=== PATIENT | male | born 1985 | race Caucasian/White ===

== ENCOUNTER → 2020-07-01 10:19 | Outpatient (BNVA) | payer OTHER, SELFPAY | PROVIDERS: PCP Internal Medicine; Visit Provider Internal Medicine | DX: Z76.89 Persons encountering health services in other specified circumstances (principal) ==

== ENCOUNTER → 2020-11-04 15:16 | Outpatient (BNVA) | payer OTHER, SELFPAY | PROVIDERS: PCP Internal Medicine; Visit Provider Internal Medicine ==

== ENCOUNTER → 2021-05-11 14:33 | Outpatient (BNVA) | payer OTHER, SELFPAY | PROVIDERS: PCP Internal Medicine; Visit Provider Internal Medicine ==

== ENCOUNTER 2022-04-02 10:47 | Outpatient (REF) | payer OTHER, SELFPAY ==
[2022-04-02 10:53] LABS: MANUAL DIFF FLAG NO
[2022-04-02 11:21] LABS: Basophils Absolute Auto 0.1 X10*3/uL (0.0-0.2); Eosinophils Absolute Auto 0.2 X10*3/uL (0.0-0.4); Eosinophils Percent Auto 1.5 % (0-4); Hematocrit 40.8 % (42.0-52.0); Hemoglobin 14.2 g/dl (14.0-18.0); Imm Gran Abs Auto 0.04 X10*3/uL (0.00-0.03); Imm Gran Pct Auto 0.4 % (0.0-0.4); Lymphocytes Absolute Auto 2.4 X10*3/uL (1.2-4.9); Lymphocytes Percent Auto 21.4 % (20-40); Mean Corpuscular HGB Conc 34.8 g/dl (31.0-36.0); Mean Corpuscular Hemoglobin 27.7 pg (27.0-33.0); Mean Corpuscular Volume 79.5 fL (80.0-98.0); Mean Platelet Volume 10.1 fL (9.4-12.4); Monocytes Absolute Auto 0.6 X10*3/uL (0.1-1.2); Monocytes Percent Auto 5.1 % (2-11); Neutrophils Absolute Auto 7.8 x10*3/uL (2.0-8.3); Neutrophils Percent Auto 70.6 % (45-73); Platelet Count 259 X10*3/uL (160-400); Red Blood Count 5.13 X10*6/uL (4.60-5.80); Red Cell Distribution Width 14.3 % (11.0-16.0)
[2022-04-02 11:34] LABS: Alanine Aminotransferase 55 U/L (0-40); Albumin Level 4.4 g/dL (3.5-5.0); Alkaline Phosphatase 84 U/L (39-117); Anion Gap 13 (12-20); Aspartate Amino Transferase 31 U/L (5-37); Bilirubin Total 0.7 mg/dL (0.0-1.0); Blood Urea Nitrogen 11 mg/dL (9-16); Calcium 9.3 mg/dL (8.4-10.2); Carbon Dioxide 30 mmol/L (22-29); Chloride 103 mmol/L (96-108); Cholesterol 182 mg/dL; Estimated Glomerular Filt Rate > 60; Glucose Fasting 141 mg/dL (60-99); HDL Cholesterol 30 mg/dL; LDL Cholesterol Calculated 87 mg/dl; Potassium 3.8 mmol/L (3.3-5.1); Sodium 142 mmol/L (135-145); Total Protein 6.8 g/dL (6.5-8.0); Triglycerides 329 mg/dL
[2022-04-02 11:56] LABS: Thyroid Stimulating Hormone 2.37 uIU/mL (0.32-4.0); Vitamin D 25-OH Total 26.7 ng/mL (>30)
== END 2022-04-02 10:48 | disposition home or self-care (01) ==
LOC: HO.LAB 10:47
PROVIDERS: PCP Internal Medicine; Visit Provider Internal Medicine
DX: F90.0 Attention-deficit hyperactivity disorder, predominantly inattentive type (principal); E55.9 Vitamin D deficiency, unspecified; E66.01 Morbid (severe) obesity due to excess calories; G47.33 Obstructive sleep apnea (adult) (pediatric)
CPT/HCPCS: 36415; 80053; 80061; 82306; 84443; 85025

== ENCOUNTER 2022-08-06 13:52 | Outpatient (REF) | payer OTHER, SELFPAY ==
[2022-08-06 15:33] LABS: MANUAL DIFF FLAG NO
[2022-08-06 15:35] LABS: Basophils Absolute Auto 0.1 X10*3/uL (0.0-0.2); Basophils Percent Auto 1.2 % (0-2); Eosinophils Absolute Auto 0.1 X10*3/uL (0.0-0.4); Eosinophils Percent Auto 1.1 % (0-4); Hematocrit 41.4 % (42.0-52.0); Hemoglobin 14.3 g/dl (14.0-18.0); Imm Gran Abs Auto 0.04 X10*3/uL (0.00-0.03); Imm Gran Pct Auto 0.4 % (0.0-0.4); Lymphocytes Absolute Auto 2.2 X10*3/uL (1.2-4.9); Lymphocytes Percent Auto 22.5 % (20-40); Mean Corpuscular HGB Conc 34.5 g/dl (31.0-36.0); Mean Corpuscular Hemoglobin 27.7 pg (27.0-33.0); Mean Corpuscular Volume 80.2 fL (80.0-98.0); Mean Platelet Volume 10.2 fL (9.4-12.4); Monocytes Absolute Auto 0.4 X10*3/uL (0.1-1.2); Monocytes Percent Auto 4.4 % (2-11); Neutrophils Absolute Auto 6.9 x10*3/uL (2.0-8.3); Neutrophils Percent Auto 70.4 % (45-73); Platelet Count 266 X10*3/uL (160-400); Red Blood Count 5.16 X10*6/uL (4.60-5.80); Red Cell Distribution Width 13.9 % (11.0-16.0); White Blood Count 9.9 X10*3/uL (4.8-10.8)
[2022-08-06 16:24] LABS: Bilirubin Total 0.6 mg/dL (0.0-1.0)
[2022-08-06 16:28] LABS: Alanine Aminotransferase 37 U/L (0-40); Albumin Level 4.4 g/dL (3.5-5.0); Alkaline Phosphatase 79 U/L (39-117); Anion Gap 15 (12-20); Aspartate Amino Transferase 20 U/L (5-37); Blood Urea Nitrogen 14 mg/dL (9-16); Calcium 9.8 mg/dL (8.4-10.2); Carbon Dioxide 27 mmol/L (22-29); Chloride 104 mmol/L (96-108); Cholesterol 176 mg/dL; Estimated Glomerular Filt Rate > 60; Glucose Fasting 116 mg/dL (60-99); HDL Cholesterol 27 mg/dL; LDL Cholesterol Calculated 105 mg/dl; Potassium 3.6 mmol/L (3.3-5.1); Sodium 142 mmol/L (135-145); Thyroid Stimulating Hormone 1.55 uIU/mL (0.32-4.0); Total Protein 6.6 g/dL (6.5-8.0); Triglycerides 221 mg/dL; Vitamin D 25-OH Total 27.1 ng/mL (>30)
== END 2022-08-06 13:53 | disposition home or self-care (01) ==
LOC: HO.HMGCLDS 13:52
PROVIDERS: PCP Internal Medicine; Visit Provider Internal Medicine
DX: E66.01 Morbid (severe) obesity due to excess calories (principal); F90.0 Attention-deficit hyperactivity disorder, predominantly inattentive type; E55.9 Vitamin D deficiency, unspecified; N52.9 Male erectile dysfunction, unspecified
CPT/HCPCS: 36415; 80053; 80061; 82306; 84443; 85025

== ENCOUNTER 2022-12-19 19:59 | Observation (INO) | payer OTHER, SELFPAY ==
--- NOTE | ~2022-12-19 | XR_ITS ---
EXAMINATION: XR CERVICAL SPINE CLINICAL INFORMATION: Radicular neck pain COMPARISON: None available. TECHNIQUE: 3 views of the cervical spine were obtained. FINDINGS: There are no prevertebral soft tissue or bony abnormalities demonstrated. No compression fractures or subluxations are identified. Alignment is maintained at the atlanto-axial articulation. The disc spaces are preserved. No endplate changes are seen. The prevertebral soft tissues are normal. The lung apices are clear . XR/XR cervical spine 3V IMPRESSION: Normal cervical spine radiographs.
--- NOTE | 2022-12-19 20:50 | ED_ITS ---
HPI - General Adult General Chief complaint: Neck Pain/Injury <TACOS Alvarenga - Last Filed: 12/22/22 18:06> Stated complaint: high blood pressure,neck pain <TACOS Alvarenga - Last Filed: 12/22/22 18:06> Time Seen by Provider: 12/19/22 21:37 <TACOS Alvarenga - Last Filed: 12/22/22 18:06> Source: patient and family <Valerio Rosales MD - Last Filed: 12/19/22 23:55> Mode of arrival: ambulatory <Valerio Rosales MD - Last Filed: 12/19/22 23:55> Limitations: no limitations <Valerio Rosales MD - Last Filed: 12/19/22 23:55> History of Present Illness HPI narrative: right sided neck and shoulder pain, towards the scapula with some tingling, patient believes it is because he woke up on his right side. He thought that it was getting better but then decided to go to the urgent care where they found it to be 186/104. Denies chest pain or shortness of breath. Stella huitron saw his primary care in August and the BP was 165 systolic. no increase in weight gain. no prior EKG. <Valerio Rosales MD - Last Filed: 12/19/22 23:55> Onset (ago): day(s) (5) <Valerio Rosales MD - Last Filed: 12/19/22 23:55> Location: neck and upper extremity <Valerio Rosales MD - Last Filed: 12/19/22 23:55> Severity: mild <Valerio Rosales MD - Last Filed: 12/19/22 23:55> Quality: other (soreness, radicular pain with neck movement) <Valerio Rosales MD - Last Filed: 12/19/22 23:55> Pain Consistency: intermittent <Valerio Rosales MD - Last Filed: 12/19/22 23:55> Relieving factors: none <Valerio Rosales MD - Last Filed: 12/19/22 23:55> Exacerbating factors: movement <Valerio Rosales MD - Last Filed: 12/19/22 23:55> Related Data Home medications: Home Medications Medication Instructions Recorded Confirmed cholecalciferol (vitamin D3) 50 50 mcg PO DAILY 05/28/20 12/20/22 mcg (2,000 unit) capsule dextroamphetamine-amphetamine ER 1 cap PO DAILY 05/28/20 12/20/22 15 mg 24hr capsule,extend release Previous Rx's Medication Instructions Recorded amlodipine 5 mg tablet 5 mg PO DAILY #30 tabs 12/21/22 hydrochlorothiazide 12.5 mg tablet 12.5 mg PO DAILY #30 tabs 12/21/22 lisinopril 10 mg tablet 10 mg PO DAILY #30 tabs 12/21/22 <TACOS Alvarenga - Last Filed: 12/22/22 18:06> Allergies/adverse reactions: Allergies Allergy/AdvReac Type Severity Reaction Status Date / Time No Known Allergies Allergy Verified 05/11/21 14:54 [No Known Allergies*] <TACOS Alvarenga - Last Filed: 12/22/22 18:06> Review of Systems Review of Systems: Yes all other systems are reviewed and are negative <Valerio Rosales MD - Last Filed: 12/19/22 23:55> Musculoskeletal: Musculoskeletal: Reports other (neck and shoulder pain) <Valerio Rosales MD - Last Filed: 12/19/22 23:55> [facility] Past Medical History Medical History: Medical History Obesity FRANKIE (obstructive sleep apnea) FRANKIE (obstructive sleep apnea) <TACOS Alvarenga - Last Filed: 12/22/22 18:06> Social History Social History: Social History Household Members: Significant Other Housing: Apartment Do you presently have visiting nurse or other home services: No Alcohol intake: never Patient Tobacco Use Status: Never used Tobacco service: No Current occupational status: employed <TACOS Alvarenga - Last Filed: 12/22/22 18:06> Physical Exam ED Vital Signs: Vital Signs - 24 hr 12/19/22 20:51 12/19/22 21:28 12/19/22 22:06 Temperature 98.6 F Pulse Rate 95 84 74 Respiratory Rate 20 14 18 Blood Pressure 216/121 H 205/109 H 197/113 H Pulse Oximetry 99 98 98 Oxygen Delivery Method Room Air Room Air Room Air 12/19/22 22:36 Temperature Pulse Rate 76 Respiratory Rate 14 Blood Pressure 186/96 H Pulse Oximetry 98 Oxygen Delivery Method Room Air BMI result Body Mass Index 27.1 <TACOS Alvarenga - Last Filed: 12/22/22 18:06> Vital Signs - 24 hr 12/19/22 20:51 12/19/22 21:28 12/19/22 22:06 Temperature 98.6 F Pulse Rate 95 84 74 Respiratory Rate 20 14 18 Blood Pressure 216/121 H 205/109 H 197/113 H Pulse Oximetry 99 98 98 Oxygen Delivery Method Room Air Room Air Room Air 12/19/22 22:36 Temperature Pulse Rate 76 Respiratory Rate 14 Blood Pressure 186/96 H Pulse Oximetry 98 Oxygen Delivery Method Room Air BMI result Body Mass Index 27.1 <Valerio Rosales MD - Last Filed: 12/19/22 23:55> Const Nutritional Appearance: obese <Valerio Rosales MD - Last Filed: 12/19/22 23:55> Orientation/consciousness: oriented to person and patient oriented x3 <Valerio Rosales MD - Last Filed: 12/19/22 23:55> Limitations: no limitations <Valerio Rosales MD - Last Filed: 12/19/22 23:55> HENMT Head: Yes normal to inspection <Valerio Rosales MD - Last Filed: 12/19/22 23:55> Ears: external ears normal <Valerio Rosales MD - Last Filed: 12/19/22 23:55> General nose exam: Normal external nose present <Valerio Rosales MD - Last Filed: 12/19/22 23:55> Mouth: Normal oral and palatal mucosa present and oropharynx normal <Valerio Rosales MD - Last Filed: 12/19/22 23:55> Throat: Yes posterior oropharynx normal <Valerio Rosales MD - Last Filed: 12/19/22 23:55> Eyes General: appearance normal, both eyes and all related structures <Valerio Rosales MD - Last Filed: 12/19/22 23:55> Neck Other: right sided trapezius pain <Valerio Rosales MD - Last Filed: 12/19/22 23:55> Chest Chest palpation & inspection: normal inspection of the chest <Valerio Rosales MD - Last Filed: 12/19/22 23:55> Resp Auscultation: clear to auscultation bilaterally <Valerio Rosales MD - Last Filed: 12/19/22 23:55> Cardio Jugular venous distension: no JVD <Valerio Rosales MD - Last Filed: 12/19/22 23:55> Rate: regular rate <Valerio Rosales MD - Last Filed: 12/19/22 23:55> Rhythm: regular rhythm <Valerio Rosales MD - Last Filed: 12/19/22 23:55> Heart sounds: S1 normal heart sound present and S2 normal heart sound present <Valerio Rosales MD - Last Filed: 12/19/22 23:55> GI Inspection: Yes normal to inspection <Valerio Rosales MD - Last Filed: 12/19/22 23:55> Palpation (GI): Soft to palpation, nontender and No hepatosplenomegaly present <Valerio Rosales MD - Last Filed: 12/19/22 23:55> Auscultation: normal bowel sounds <Valerio Rosales MD - Last Filed: 12/19/22 23:55> General: Yes no CVA tenderness <Valerio Rosales MD - Last Filed: 12/19/22 23:55> Back/Spine/Pelvis Back: no CVA tenderness <Valerio Rosales MD - Last Filed: 12/19/22 23:55> Skin General skin exam: no rashes or lesions noted <Valerio Rosales MD - Last Filed: 12/19/22 23:55> Neuro General: oriented to person and patient oriented x3 <Valerio Rosales MD - Last Filed: 12/19/22 23:55> Cranial nerves: Yes CN's II-XII intact bilaterally <Valerio Rosales MD - Last Filed: 12/19/22 23:55> Motor exam (neuro): 5/5 motor strength present throughout <Valerio Rosales MD - Last Filed: 12/19/22 23:55> Extrem General: Yes normal to inspection <Valerio Rosales MD - Last Filed: 12/19/22 23:55> Psych Appearance: grossly normal <Valerio Rosales MD - Last Filed: 12/19/22 23:55> Course Course Course Narrative: RME: 37yo m w/PMHx FRANKIE, c/o right side neck pain x5 days w/assoc RUE tingling. Also reports HTN (186/104) at [facility], denies history of elevated BP. Denies CHRISTIAN, dizziness, CP/SOB HTNsive 216/121 in triage EKG, Labs ordered Full HPI, ROS and PE to be performed by primary ED provider. <TACOS Alvarenga - Last Filed: 12/22/22 18:06> Reevaluation(s) Reevaluation #1: patient with BP in the 200s and a very abnormal EKG. GAve ASA, NTP, and labetolol. First troponin negative will admit for hypertensive urgency and abnormal EKG <Valerio Rosales MD - Last Filed: 12/19/22 23:55> Time: 23:50 <Valerio Rosales MD - Last Filed: 12/19/22 23:55> Reevaluation #2: I spent 40 minutes of critical care, with interventions, assessments, speaking to patient, consultants, and family. <Valerio Rosales MD - Last Filed: 12/19/22 23:55> Time: 23:50 <Valerio Rosales MD - Last Filed: 12/19/22 23:55> Medications Administered Discontinued Medications Generic Name Dose Route Start Last Admin Trade Name Freq PRN Reason Stop Dose Admin Acetaminophen 650 mg 12/19/22 23:53 12/20/22 23:12 Acetaminophen 325 Mg Tablet PO 650 mg Q6H PRN Administration Pain, Mild (Pain Scale 1-3) Amlodipine Besylate 5 mg 12/20/22 01:30 12/21/22 08:48 Amlodipine Besylate 5 Mg Tablet PO 5 mg DAILY NAZARIO Administration Protocol Aspirin 162 mg 12/19/22 21:50 12/19/22 22:02 Aspirin Enteric Coated 81 Mg Tablet.Dr PO 12/19/22 21:51 162 mg ONCE ONE Administration Enoxaparin Sodium 40 mg 12/20/22 09:00 12/21/22 08:48 Enoxaparin Sodium 40 Mg/0.4 Ml Syringe SUBCUT 40 mg Q24H [facility] Administration Hydrochlorothiazide 12.5 mg 12/21/22 09:00 12/21/22 08:48 Hydrochlorothiazide 12.5 Mg Tablet PO 12.5 mg DAILY [facility] Administration Protocol Ketorolac Tromethamine 30 mg 12/19/22 21:52 12/19/22 22:02 Ketorolac Tromethamine 30 Mg/Ml Vial IVPUSH 12/19/22 21:53 30 mg ONCE ONE Administration Labetalol HCl 10 mg 12/19/22 21:50 12/19/22 22:02 Labetalol Hcl 100 Mg/20 Ml Vial IVPUSH 12/19/22 21:51 10 mg ONCE ONE Administration Lisinopril 5 mg 12/20/22 01:30 12/20/22 02:05 Lisinopril 5 Mg Tablet PO 5 mg DAILY [facility] Administration Protocol Lisinopril 10 mg 12/20/22 09:00 12/21/22 08:49 Lisinopril 10 Mg Tablet PO 10 mg DAILY [facility] Administration Protocol Nitroglycerin 1 inch 12/19/22 21:50 12/19/22 22:02 Nitroglycerin 2 % Oint 1 Gm Packet TRANSDERMA 12/19/22 21:51 1 inch ONCE ONE Administration Potassium Chloride 20 meq 12/19/22 23:52 12/20/22 00:55 Potassium Chloride Er 20 Meq Tab.Er.Prt PO 12/19/22 23:53 20 meq ONCE ONE Administration Potassium Chloride 40 meq 12/20/22 01:30 12/20/22 02:05 Potassium Chloride Packet 20 Meq Packet PO 12/20/22 01:31 40 meq ONCE ONE Administration Potassium Chloride 40 meq 12/20/22 14:38 12/20/22 15:04 Potassium Chloride Er 20 Meq Tab.Er.Prt PO 12/20/22 14:39 40 meq ONCE ONE Administration Sodium Chloride 3 ml 12/20/22 00:00 12/21/22 08:48 0.9 % Sodium Chloride Flush 3 Ml Syringe IVFLUSH 3 ml QSHIFT [facility] Administration Trolamine Salicylate 1 appl 12/20/22 14:37 12/20/22 15:05 Trolamine Salicylate 10 % Cream 85 Gm Tube TOPICAL 12/20/22 14:38 1 appl ONCE ONE Administration Protocol <TACOS Alvarenga - Last Filed: 12/22/22 18:06> Medications Administered Discontinued Medications Generic Name Dose Route Start Last Admin Trade Name Renu PRN Reason Stop Dose Admin Acetaminophen 650 mg 12/19/22 23:53 12/20/22 23:12 Acetaminophen 325 Mg Tablet PO 650 mg Q6H PRN Administration Pain, Mild (Pain Scale 1-3) Amlodipine Besylate 5 mg 12/20/22 01:30 12/21/22 08:48 Amlodipine Besylate 5 Mg Tablet PO 5 mg DAILY [facility] Administration Protocol Aspirin 162 mg 12/19/22 21:50 12/19/22 22:02 Aspirin Enteric Coated 81 Mg Tablet.Dr PO 12/19/22 21:51 162 mg ONCE ONE Administration Enoxaparin Sodium 40 mg 12/20/22 09:00 12/21/22 08:48 Enoxaparin Sodium 40 Mg/0.4 Ml Syringe SUBCUT 40 mg Q24H [facility] Administration Hydrochlorothiazide 12.5 mg 12/21/22 09:00 12/21/22 08:48 Hydrochlorothiazide 12.5 Mg Tablet PO 12.5 mg DAILY [facility] Administration Protocol Ketorolac Tromethamine 30 mg 12/19/22 21:52 12/19/22 22:02 Ketorolac Tromethamine 30 Mg/Ml Vial IVPUSH 12/19/22 21:53 30 mg ONCE ONE Administration Labetalol HCl 10 mg 12/19/22 21:50 12/19/22 22:02 Labetalol Hcl 100 Mg/20 Ml Vial IVPUSH 12/19/22 21:51 10 mg ONCE ONE Administration Lisinopril 5 mg 12/20/22 01:30 12/20/22 02:05 Lisinopril 5 Mg Tablet PO 5 mg DAILY [facility] Administration Protocol Lisinopril 10 mg 12/20/22 09:00 12/21/22 08:49 Lisinopril 10 Mg Tablet PO 10 mg DAILY [facility] Administration Protocol Nitroglycerin 1 inch 12/19/22 21:50 12/19/22 22:02 Nitroglycerin 2 % Oint 1 Gm Packet TRANSDERMA 12/19/22 21:51 1 inch ONCE ONE Administration Potassium Chloride 20 meq 12/19/22 23:52 12/20/22 00:55 Potassium Chloride Er 20 Meq Tab.Er.Prt PO 12/19/22 23:53 20 meq ONCE ONE Administration Potassium Chloride 40 meq 12/20/22 01:30 12/20/22 02:05 Potassium Chloride Packet 20 Meq Packet PO 12/20/22 01:31 40 meq ONCE ONE Administration Potassium Chloride 40 meq 12/20/22 14:38 12/20/22 15:04 Potassium Chloride Er 20 Meq Tab.Er.Prt PO 12/20/22 14:39 40 meq ONCE ONE Administration Sodium Chloride 3 ml 12/20/22 00:00 12/21/22 08:48 0.9 % Sodium Chloride Flush 3 Ml Syringe IVFLUSH 3 ml QSHIFT [facility]IO Administration Trolamine Salicylate 1 appl 12/20/22 14:37 12/20/22 15:05 Trolamine Salicylate 10 % Cream 85 Gm Tube TOPICAL 12/20/22 14:38 1 appl ONCE ONE Administration Protocol <Valerio Rosales MD - Last Filed: 12/19/22 23:55> Medical Decision Making Differential Diagnosis Differential Diagnoses: The differential diagnosis associated with the presentation includes (hypertensive urgency, cardiac ischemia, abnormal EKG) <Valerio Rosales MD - Last Filed: 12/19/22 23:55> Admission/Observation Consideration of admission/observation: Escalation of care including admission/observation considered (This patien t with abnormal EKG and BP 220 systolic admission was considered immediately) <Valerio Rosales MD - Last Filed: 12/19/22 23:55> Consult Healthcare Provider Management of the patient was discussed with: Hospitalist <Valerio Rosales MD - Last Filed: 12/19/22 23:55> Lab Data MDM Lab Attestation statement: I reviewed the patient's lab results. <Valerio Rosales MD - Last Filed: 12/19/22 23:55> Result Diagrams: 12/19/22 21:25 12/19/22 21:25 <TACOS Alvarenga - Last Filed: 12/22/22 18:06> Labs: Lab Results 12/19/22 12/19/22 12/19/22 Range/Units 02:30 21:25 21:25 WBC 11.6 H (4.8-10.8) X10*3/uL RBC 5.22 (4.60-5.80) X10*6/uL Hgb 14.4 (14.0-18.0) g/dl Hct 40.9 L (42.0-52.0) % MCV 78.4 L (80.0-98.0) fL MCH 27.6 (27.0-33.0) pg MCHC 35.2 (31.0-36.0) g/dl RDW 13.9 (11.0-16.0) % Plt Count 273 (160-400) X10*3/uL MPV 9.6 (9.4-12.4) fL Immature Gran % (Auto) 0.4 (0.0-0.4) % Neut % (Auto) 68.5 (45-73) % Lymph % (Auto) 23.1 (20-40) % [place] % (Auto) 5.4 (2-11) % Eos % (Auto) 1.7 (0-4) % Baso % (Auto) 0.9 (0-2) % Lymph # (Auto) 2.7 (1.2-4.9) X10*3/uL [place] # (Auto) 0.6 (0.1-1.2) X10*3/uL Eos # (Auto) 0.2 (0.0-0.4) X10*3/uL Baso # (Auto) 0.1 (0.0-0.2) X10*3/uL Abs Immat Gran (auto) 0.05 H (0.00-0.03) X10*3/uL Absolute Neuts (auto) 7.9 (2.0-8.3) x10*3/uL Absolute Nucleated RBC 0.000 (0.0-0.012) X10*3/uL Nucleated RBC % (auto) 0.0 (0.0-0.2) /100WBC PT (10.0-13.1) SEC INR (0.9-1.1) Sodium 144 (135-145) mmol/L Potassium 3.2 L (3.3-5.1) mmol/L Chloride 105 (96-108) mmol/L Carbon Dioxide 29 (22-29) mmol/L Anion Gap 13 (12-20) BUN 12 (9-16) mg/dL Creatinine 0.90 (0.5-1.4) mg/dL Estim Creat Clear Calc 122.1 Estimated GFR > 60 Random Glucose 128 H (60-115) mg/dL Calcium 10.0 (8.4-10.2) mg/dL Total Bilirubin 0.5 (0.0-1.0) mg/dL Direct Bilirubin 0.1 (0.0-0.5) mg/dL AST 23 (5-37) U/L ALT 48 H (0-40) U/L Alkaline Phosphatase 86 (39-117) U/L Troponin I High Sens (<3.5-35.0) ng/L Total Protein 6.8 (6.5-8.0) g/dL Albumin 4.5 (3.5-5.0) g/dL Urine Color Yellow Urine Appearance Clear Urine pH 5.5 (5.0-9.0) Ur Specific [place] 1.015 (1.005-1.025) Urine Protein Negative (Neg-Trace) mg/dL Urine Glucose (UA) Negative (Negative) mg/dL Urine Ketones Negative (Negative) mg/dL Urine Blood Negative (Negative) Urine Nitrite Negative (Negative) Ur Leukocyte Esterase Negative (Negative) Urine RBC 0-2 (0-2) /HPF Urine WBC 0-5 (0-5) /HPF Ur Squamous Epith Cells 0-2 (0-2) /HPF Urine Bacteria None Seen (None Seen) Hyaline Casts 0-2 (0-2) /LPF 12/19/22 12/19/22 Range/Units 21:25 21:25 WBC (4.8-10.8) X10*3/uL RBC (4.60-5.80) X10*6/uL Hgb (14.0-18.0) g/dl Hct (42.0-52.0) % MCV (80.0-98.0) fL MCH (27.0-33.0) pg MCHC (31.0-36.0) g/dl RDW (11.0-16.0) % Plt Count (160-400) X10*3/uL MPV (9.4-12.4) fL Immature Gran % (Auto) (0.0-0.4) % Neut % (Auto) (45-73) % Lymph % (Auto) (20-40) % [place] % (Auto) (2-11) % Eos % (Auto) (0-4) % Baso % (Auto) (0-2) % Lymph # (Auto) (1.2-4.9) X10*3/uL [place] # (Auto) (0.1-1.2) X10*3/uL Eos # (Auto) (0.0-0.4) X10*3/uL Baso # (Auto) (0.0-0.2) X10*3/uL Abs Immat Gran (auto) (0.00-0.03) X10*3/uL Absolute Neuts (auto) (2.0-8.3) x10*3/uL Absolute Nucleated RBC (0.0-0.012) X10*3/uL Nucleated RBC % (auto) (0.0-0.2) /100WBC PT 11.1 (10.0-13.1) SEC INR 1.0 (0.9-1.1) Sodium (135-145) mmol/L Potassium (3.3-5.1) mmol/L Chloride (96-108) mmol/L Carbon Dioxide (22-29) mmol/L Anion Gap (12-20) BUN (9-16) mg/dL Creatinine (0.5-1.4) mg/dL Estim Creat Clear Calc Estimated GFR Random Glucose (60-115) mg/dL Calcium (8.4-10.2) mg/dL Total Bilirubin (0.0-1.0) mg/dL Direct Bilirubin (0.0-0.5) mg/dL AST (5-37) U/L ALT (0-40) U/L Alkaline Phosphatase (39-117) U/L Troponin I High Sens 5.4 (<3.5-35.0) ng/L Total Protein (6.5-8.0) g/dL Albumin (3.5-5.0) g/dL Urine Color Urine Appearance Urine pH (5.0-9.0) Ur Specific Pierce (1.005-1.025) Urine Protein (Neg-Trace) mg/dL Urine Glucose (UA) (Negative) mg/dL Urine Ketones (Negative) mg/dL Urine Blood (Negative) Urine Nitrite (Negative) Ur Leukocyte Esterase (Negative) Urine RBC (0-2) /HPF Urine WBC (0-5) /HPF Ur Squamous Epith Cells (0-2) /HPF Urine Bacteria (None Seen) Hyaline Casts (0-2) /LPF <TACOS Alvarenga - Last Filed: 12/22/22 18:06> Lab Results 12/19/22 12/19/22 12/19/22 Range/Units 02:30 21:25 21:25 WBC 11.6 H (4.8-10.8) X10*3/uL RBC 5.22 (4.60-5.80) X10*6/uL Hgb 14.4 (14.0-18.0) g/dl Hct 40.9 L (42.0-52.0) % MCV 78.4 L (80.0-98.0) fL MCH 27.6 (27.0-33.0) pg MCHC 35.2 (31.0-36.0) g/dl RDW 13.9 (11.0-16.0) % Plt Count 273 (160-400) X10*3/uL MPV 9.6 (9.4-12.4) fL Immature Gran % (Auto) 0.4 (0.0-0.4) % Neut % (Auto) 68.5 (45-73) % Lymph % (Auto) 23.1 (20-40) % [place] % (Auto) 5.4 (2-11) % Eos % (Auto) 1.7 (0-4) % Baso % (Auto) 0.9 (0-2) % Lymph # (Auto) 2.7 (1.2-4.9) X10*3/uL [place] # (Auto) 0.6 (0.1-1.2) X10*3/uL Eos # (Auto) 0.2 (0.0-0.4) X10*3/uL Baso # (Auto) 0.1 (0.0-0.2) X10*3/uL Abs Immat Gran (auto) 0.05 H (0.00-0.03) X10*3/uL Absolute Neuts (auto) 7.9 (2.0-8.3) x10*3/uL Absolute Nucleated RBC 0.000 (0.0-0.012) X10*3/uL Nucleated RBC % (auto) 0.0 (0.0-0.2) /100WBC PT (10.0-13.1) SEC INR (0.9-1.1) Sodium 144 (135-145) mmol/L Potassium 3.2 L (3.3-5.1) mmol/L Chloride 105 (96-108) mmol/L Carbon Dioxide 29 (22-29) mmol/L Anion Gap 13 (12-20) BUN 12 (9-16) mg/dL Creatinine 0.90 (0.5-1.4) mg/dL Estim Creat Clear Calc 122.1 Estimated GFR > 60 Random Glucose 128 H (60-115) mg/dL Calcium 10.0 (8.4-10.2) mg/dL Total Bilirubin 0.5 (0.0-1.0) mg/dL Direct Bilirubin 0.1 (0.0-0.5) mg/dL AST 23 (5-37) U/L ALT 48 H (0-40) U/L Alkaline Phosphatase 86 (39-117) U/L Troponin I High Sens (<3.5-35.0) ng/L Total Protein 6.8 (6.5-8.0) g/dL Albumin 4.5 (3.5-5.0) g/dL Urine Color Yellow Urine Appearance Clear Urine pH 5.5 (5.0-9.0) Ur Specific [place] 1.015 (1.005-1.025) Urine Protein Negative (Neg-Trace) mg/dL Urine Glucose (UA) Negative (Negative) mg/dL Urine Ketones Negative (Negative) mg/dL Urine Blood Negative (Negative) Urine Nitrite Negative (Negative) Ur Leukocyte Esterase Negative (Negative) Urine RBC 0-2 (0-2) /HPF Urine WBC 0-5 (0-5) /HPF Ur Squamous Epith Cells 0-2 (0-2) /HPF Urine Bacteria None Seen (None Seen) Hyaline Casts 0-2 (0-2) /LPF 12/19/22 12/19/22 Range/Units 21:25 21:25 WBC (4.8-10.8) X10*3/uL RBC (4.60-5.80) X10*6/uL Hgb (14.0-18.0) g/dl Hct (42.0-52.0) % MCV (80.0-98.0) fL MCH (27.0-33.0) pg MCHC (31.0-36.0) g/dl RDW (11.0-16.0) % Plt Count (160-400) X10*3/uL MPV (9.4-12.4) fL Immature Gran % (Auto) (0.0-0.4) % Neut % (Auto) (45-73) % Lymph % (Auto) (20-40) % [place] % (Auto) (2-11) % Eos % (Auto) (0-4) % Baso % (Auto) (0-2) % Lymph # (Auto) (1.2-4.9) X10*3/uL [place] # (Auto) (0.1-1.2) X10*3/uL Eos # (Auto) (0.0-0.4) X10*3/uL Baso # (Auto) (0.0-0.2) X10*3/uL Abs Immat Gran (auto) (0.00-0.03) X10*3/uL Absolute Neuts (auto) (2.0-8.3) x10*3/uL Absolute Nucleated RBC (0.0-0.012) X10*3/uL Nucleated RBC % (auto) (0.0-0.2) /100WBC PT 11.1 (10.0-13.1) SEC INR 1.0 (0.9-1.1) Sodium (135-145) mmol/L Potassium (3.3-5.1) mmol/L Chloride (96-108) mmol/L Carbon Dioxide (22-29) mmol/L Anion Gap (12-20) BUN (9-16) mg/dL Creatinine (0.5-1.4) mg/dL Estim Creat Clear Calc Estimated GFR Random Glucose (60-115) mg/dL Calcium (8.4-10.2) mg/dL Total Bilirubin (0.0-1.0) mg/dL Direct Bilirubin (0.0-0.5) mg/dL AST (5-37) U/L ALT (0-40) U/L Alkaline Phosphatase (39-117) U/L Troponin I High Sens 5.4 (<3.5-35.0) ng/L Total Protein (6.5-8.0) g/dL Albumin (3.5-5.0) g/dL Urine Color Urine Appearance Urine pH (5.0-9.0) Ur Specific [place] (1.005-1.025) Urine Protein (Neg-Trace) mg/dL Urine Glucose (UA) (Negative) mg/dL Urine Ketones (Negative) mg/dL Urine Blood (Negative) Urine Nitrite (Negative) Ur Leukocyte Esterase (Negative) Urine RBC (0-2) /HPF Urine WBC (0-5) /HPF Ur Squamous Epith Cells (0-2) /HPF Urine Bacteria (None Seen) Hyaline Casts (0-2) /LPF <Valerio Rosales MD - Last Filed: 12/19/22 23:55> Independent Interpretation I performed an independent interpretation of an: EKG (sinus 76, flipped ts and st depression I, AVL. Flipped Ts V5-V6) and Plain X-Ray (cervical spine: no djd) <Valerio Rosales MD - Last Filed: 12/19/22 23:55> Independent Historian Clinical information obtained from an independent historian. History obtained from or confirmed by: Spouse <Valerio Rosales MD - Last Filed: 12/19/22 23:55> Chronic Conditions Patient?s care impacted by: Other (obesity) <Valerio Rosales MD - Last Filed: 12/19/22 23:55> Discharge Plan Discharge Clinical Impression: Hypertensive urgency, Abnormal EKG <TACOS Alvarenga - Last Filed: 12/22/22 18:06> Patient Disposition: Admitted As Inpatient <TACOS Alvarenga - Last Filed: 12/22/22 18:06> Interventions: Admission Worksheet (ED) Last Done: 12/20/22 02:10 <TACOS Alvarenga - Last Filed: 12/22/22 18:06> Discharge Date/Time: 12/20/22 02:10 <TACOS Alvarenga - Last Filed: 12/22/22 18:06>
[2022-12-19 20:51] VITALS: BP 216/121; PULSE 95; RESP 20; TEMP 37; O2SAT 99; BMI 27.1
--- NOTE | 2022-12-19 20:52 | ECG_ITS ---
Test Reason : HBP Blood Pressure : / mmHG Vent. Rate : 076 BPM Atrial Rate : 076 BPM P-R Int : 166 ms QRS Dur : 110 ms QT Int : 420 ms P-R-T Axes : 043 -17 156 degrees QTc Int : 472 ms Normal sinus rhythm Incomplete right bundle branch block Inferior infarct , age undetermined Cannot rule out Anterior infarct , age undetermined ST & T wave abnormality, consider lateral ischemia Abnormal ECG No previous ECGs available Referred By: Flora Duckworth Electronically Signed By:Neo Mena
[2022-12-19 21:28] VITALS: BP 205/109; PULSE 84; RESP 14; O2SAT 98
[2022-12-19 21:30] LABS: MANUAL DIFF FLAG NO
[2022-12-19 21:31] LABS: Basophils Absolute Auto 0.1 X10*3/uL (0.0-0.2); Basophils Percent Auto 0.9 % (0-2); Eosinophils Absolute Auto 0.2 X10*3/uL (0.0-0.4); Eosinophils Percent Auto 1.7 % (0-4); Hematocrit 40.9 % (42.0-52.0); Hemoglobin 14.4 g/dl (14.0-18.0); Imm Gran Abs Auto 0.05 X10*3/uL (0.00-0.03); Imm Gran Pct Auto 0.4 % (0.0-0.4); Lymphocytes Absolute Auto 2.7 X10*3/uL (1.2-4.9); Lymphocytes Percent Auto 23.1 % (20-40); Mean Corpuscular HGB Conc 35.2 g/dl (31.0-36.0); Mean Corpuscular Hemoglobin 27.6 pg (27.0-33.0); Mean Corpuscular Volume 78.4 fL (80.0-98.0); Mean Platelet Volume 9.6 fL (9.4-12.4); Monocytes Absolute Auto 0.6 X10*3/uL (0.1-1.2); Monocytes Percent Auto 5.4 % (2-11); Neutrophils Absolute Auto 7.9 x10*3/uL (2.0-8.3); Neutrophils Percent Auto 68.5 % (45-73); Platelet Count 273 X10*3/uL (160-400); Red Blood Count 5.22 X10*6/uL (4.60-5.80); Red Cell Distribution Width 13.9 % (11.0-16.0); White Blood Count 11.6 X10*3/uL (4.8-10.8)
[2022-12-19 21:37] LABS: Prothrombin Time 11.1 SEC (10.0-13.1)
[2022-12-19 21:48] LABS: Alanine Aminotransferase 48 U/L (0-40); Albumin Level 4.5 g/dL (3.5-5.0); Alkaline Phosphatase 86 U/L (39-117); Anion Gap 13 (12-20); Aspartate Amino Transferase 23 U/L (5-37); Bilirubin Direct 0.1 mg/dL (0.0-0.5); Bilirubin Total 0.5 mg/dL (0.0-1.0); Blood Urea Nitrogen 12 mg/dL (9-16); Carbon Dioxide 29 mmol/L (22-29); Chloride 105 mmol/L (96-108); Creatinine Clr Calc Pharmacy 122.1; Estimated Glomerular Filt Rate > 60; Glucose Random 128 mg/dL (60-115); Potassium 3.2 mmol/L (3.3-5.1); Sodium 144 mmol/L (135-145); Total Protein 6.8 g/dL (6.5-8.0)
[2022-12-19 21:55] LABS: Troponin-I High Sensitivity 5.4 ng/L (<3.5-35.0)
[2022-12-19] MEDS: Ketorolac Tromethamine 30 MG/ML VIAL IVPUSH (22:02)
[2022-12-19] MEDS: Nitroglycerin 2 % Oint 1 GM Packet 1 INCH TRANSDERMA (22:02)
[2022-12-19] MEDS: Labetalol HCL 100 MG/20 ML VIAL 10 MG IVPUSH (22:02)
[2022-12-19] MEDS: Aspirin Enteric Coated 81 MG TABLET.DR 162 MG PO (22:02)
[2022-12-19 22:06] VITALS: BP 197/113; PULSE 74; RESP 18; O2SAT 98
[2022-12-19 22:36] VITALS: BP 186/96; PULSE 76; RESP 14; O2SAT 98
--- NOTE | 2022-12-19 23:55 | PM.IMHP ---
History of Present Illness Date of Service: 12/19/22 Chief Complaint: Neck pain This is a 37-year-old male with pertinent history ADHD presents to the emergency department for evaluation of neck pain. Patient states he woke up with neck pain and numbness in his right upper extremity 1 week ago. The numbness resolved but he continued to have neck discomfort. It improved through the week but returned on the day of presentation. Patient went to Urgent Care with blood pressure was found to be elevated and he was sent to the ER. Patient denies chest discomfort or shortness of breath. No palpitations. States his blood pressure was found to be elevated in July during his PCP visit but it was attributed to the holiday diet . Patient has never taken an antihypertensive or been to a ore buyer. Denies abdominal pain, blurring of vision, nausea, vomiting. No fever, chills, changes in urinary or bowel habits. In the emergency department, patient's blood pressure was found to be 216/121 upon initial presentation. REPLACED BY [facility] Medical History Obesity FRANKIE (obstructive sleep apnea) FRANKIE (obstructive sleep apnea) Social History Alcohol intake: never Patient Tobacco Use Status: Never used Tobacco Smoked in Last 30 Days: No Use of substances other than those prescribed or required for medical reasons: No Advance Directives: No Advance Directives Information Provided: Yes Nutrition Risks: No Nutritional Risk Meds Allergies Allergy/AdvReac Type Severity Reaction Status Date / Time No Known Allergies Allergy Verified 05/11/21 14:54 [No Known Allergies*] Active Medications: Current Medications Pharmacy Consult (Consult Rx Perform Med Rec) 1 each MISCELLANE ONCE PRN PRN Reason: Consult order Home Medications Medication Instructions Recorded Confirmed Last Taken Type cholecalciferol (vitamin D3) 50 50 mcg PO DAILY 05/28/20 12/20/22 Unknown History mcg (2,000 unit) capsule dextroamphetamine-amphetamine ER 1 cap PO QAM 05/28/20 12/20/22 Unknown History 15 mg 24hr capsule,extend release Physical Exam Vital Signs and Narrative: Vital Signs: Last Vital Signs Temp 98.6 F 12/19/22 20:51 Pulse 76 12/19/22 22:36 Resp 14 04/24/23 22:36 BP 186/96 H 12/19/22 22:36 Pulse Ox 98 12/19/22 22:36 O2 Del Method Room Air 12/19/22 22:36 BMI result Body Mass Index 27.1 Results Labs 12/19/22 21:25 12/19/22 21:25 Labs: Laboratory Results - last 24 hr 12/19/22 12/19/22 12/19/22 21:25 21:25 21:25 MCV 78.4 L MCH 27.6 MCHC 35.2 RDW 13.9 Plt Count 273 MPV 9.6 Immature Gran % (Auto) 0.4 Neut % (Auto) 68.5 Lymph % (Auto) 23.1 [place] % (Auto) 5.4 Eos % (Auto) 1.7 Baso % (Auto) 0.9 Lymph # (Auto) 2.7 [place] # (Auto) 0.6 Eos # (Auto) 0.2 Baso # (Auto) 0.1 Abs Immat Gran (auto) 0.05 H Absolute Neuts (auto) 7.9 Absolute Nucleated RBC 0.000 Nucleated RBC % (auto) 0.0 PT INR Anion Gap 13 Estim Creat Clear Calc 122.1 Estimated GFR > 60 Random Glucose 128 H Calcium 10.0 Total Bilirubin 0.5 Direct Bilirubin 0.1 AST 23 ALT 48 H Alkaline Phosphatase 86 Troponin I High Sens 5.4 Total Protein 6.8 Albumin 4.5 12/19/22 21:25 MCV MCH MCHC RDW Plt Count MPV Immature Gran % (Auto) Neut % (Auto) Lymph % (Auto) [place] % (Auto) Eos % (Auto) Baso % (Auto) Lymph # (Auto) [place] # (Auto) Eos # (Auto) Baso # (Auto) Abs Immat Gran (auto) Absolute Neuts (auto) Absolute Nucleated RBC Nucleated RBC % (auto) PT 11.1 INR 1.0 Anion Gap Estim Creat Clear Calc Estimated GFR Random Glucose Calcium Total Bilirubin Direct Bilirubin AST ALT Alkaline Phosphatase Troponin I High Sens Total Protein Albumin Imaging Radiologist's Impressions: Impressions Cervical Spine X-Ray 12/19/22 22:03 IMPRESSION: Normal cervical spine radiographs. Assessment and Plan (1) Hypertensive urgency: Status: Acute Plan This is a 37-year-old male with pertinent history ADHD presents to the emergency department for evaluation of neck pain, his BP on presentation 216/121 #. Hypertensive urgency/emergency: Patient received nitro paste and IV labetalol in the ER. Initiating two antihypertensive agents as BP more than 20mmHg above goal. Obtaining UA and echocardiogram. TSH pending. Avoid NSAIDs #. Abnormal EKG: ST depressions noted in I,II and avL. Echo as above. Repeat troponin #. Hypokalemia: Repleted #. Reactive leukocytosis, mild: Defer antibiotics DVT prophylaxis: Lovenox Cardiac diet Full code Time Spent With Patient Time: Total time managing care of this patient today ____ minutes. Quality Stroke Does the patient have a stroke diagnosis?: No VTE Prior VTE?: No VTE Risk Level:: Medical - moderate - high VTE Device Contraindication: Treatment Not Indicated VTE Drug Contraindication: N/A - Med Ordered
[2022-12-20] VITALS (7 sets, daily range): BP systolic 147–191; BP diastolic 61–106; PULSE 8–95; RESP 18–20; TEMP 36.2–37.1; O2SAT 94–97
[2022-12-20] MEDS: Potassium Chloride ER 20 MEQ TAB.ER.PRT PO (00:55)
[2022-12-20] MEDS: 0.9 % Sodium Chloride Flush 3 ML SYRINGE IVFLUSH ×3 (00:56→15:07)
[2022-12-20] MEDS: amLODIPine Besylate 5 MG TABLET PO ×2 (02:05→08:52)
[2022-12-20] MEDS: Potassium Chloride Packet 20 MEQ PACKET 40 MEQ PO (02:05)
[2022-12-20] MEDS: lisinopriL 5 MG TABLET PO (02:05)
[2022-12-20 03:10] LABS: Appearance Urine Clear; Color Urine Yellow; Glucose Urine UA Negative (Negative); Leukocyte Esterase Urine Negative (Negative); Nitrite Urine Negative (Negative); PH 5.5 (5.0-9.0); Specific Gravity - Urine 1.015 (1.005-1.025); Urine Blood Negative (Negative); Urine Ketones Negative (Negative); Urine Protein Negative (Neg-Trace)
[2022-12-20 03:13] LABS: Bacteria Urine None Seen (None Seen); Hyaline Casts Urine 0-2 /LPF (0-2); RBC Urine 0-2 /HPF (0-2); Squamous Epithelial Cell Urine 0-2 /HPF (0-2); WBC Urine 0-5 /HPF (0-5)
--- NOTE | 2022-12-20 07:00 | CA_ITS ---
Transthoracic Echocardiogram Patient (Last, First, Middle): Greg Bernardo D Gender: Male Date of : 1985 Age: 37 Procedure Date: 12/20/2022 Procedure Type: Transthoracic Echocardiogram [place] [facility] [place] Height: 182.88 cm Weight: 90.72 kg BSA: 2.13 m2 Heart Rate: bpm BP: 184 / 99 mmHg Therapist Rrt: TO Referring MD: Ricardo Chacon MD Symptoms: Elevated BP Study Quality: Fair/Contrast Conclusions: - Normal left ventricular size and systolic function. There is moderately increased left ventricular wall thickness. The visually estimated ejection fraction is between 60-65%. There is no evidence of regional wall motion abnormalities. - Normal right ventricular cavity size and systolic function. - There is mild dilatation of the ascending aorta measuring 3.40 cm. Findings Procedure Information Contrast agent, definity, is being given per protocol without apparent complications. Left Ventricle Normal left ventricular size and systolic function. There is moderately increased left ventricular wall thickness. The visually estimated ejection fraction is between 60-65%. There is no evidence of regional wall motion abnormalities. Abnormal diastolic function is noted. Spectral Doppler is indicative of a pseudonormal filling pattern. Elevated filling pressures. Right Ventricle Normal right ventricular cavity size and systolic function. Atria The left atrium is likely dilated. The right atrium is likely dilated. Aortic Valve Normal aortic valve structure and function. There is no aortic valve stenosis. There is no aortic valve regurgitation. Mitral Valve The mitral valve appears normal. There is no mitral valve regurgitation. There is no mitral valve stenosis. Pulmonic Valve Normal pulmonic valve structure and function. There is no pulmonic valve regurgitation. Tricuspid Valve Normal tricuspid valve structure and function. There is trace tricuspid valve regurgitation. Tricuspid regurgitation envelope is inadequate for calculation of right ventricular systolic pressure. Indeterminate right atrial pressure. Great Vessels There is mild dilatation of the ascending aorta measuring 3.40 cm. The visualized portions of the pulmonary artery and branches are normal. Venous The inferior vena cava was not well visualized. Pericardium/Pleural There is no evidence of pericardial effusion. Prior Study Comparison No prior study available for comparison. Measurements 2D Linear Measurements IVSd: 1.31 0.6-0.9/0.6-1.0 cm LVIDd: 4.92 3.9-5.3/4.2-5.9 cm LVIDd Index: 2.31 2.4-3.2/2.2-3.1 cm/m2 LVIDs: 3.15 2.0-3.6 cm LVPWd: 1.13 0.7-1.1 cm LA Diam: 4.00 2.7-3.8/3.0-4.0 cm LAIDs Index: 1.88 1.5-2.3 cm/m2 LV Mass: 290.78 67-162/88-224 g LV Mass Index: 136.51 43-95/49-115 g/m2 LVOT Diam: 2.10 3.0+(-)1.3 cm 2D Systolic Function EF 4C: 70.90 >55% Mitral Valve MV Pk E: 1.13 MV PK A: 0.46 MV Decel Time: 184.00 E/A: 2.50 E'Lateral: 7.94 E'Medial: 7.40 E/E' Med: 15.30 E/E' Lat: 14.20 PHT: 54.00 MVA PHT: 4.07 Decel [place]: 6.14 Aortic Valve AoV Pk Andre: 1.70 AoV Mn Andre: 1.22 AoV VTI: 0.29 AoV Pk Grad: 12.00 Aov Mn Grad: 6.00 FRANSISCA Cont.VTI: 3.55 LVOT LVOT Pk Andre: 1.78 LVOT Mn Andre: 1.20 LVOT VTI: 0.30 LVOT Pk Grad: 13.00 LVOT Mn Grad: 7.00 LVOT Diam: 2.10 LVOT Area: 3.46 Diastolic Function MV Pk E: 1.13 MV Pk A: 0.46 E/A: 2.50 E'Medial: 7.40 E/E' Med: 15.30 E' Laterial: 7.94 E/E' Lat: 14.20 Right Ventricle TAPSE (mm): 26.50 TVS' Andre: 15.90 Tricuspid Valve TR Pk Andre: 1.55 TR Pk Grad: 10.00 Great Vessels Aorta Sinus of Valsalva: 3.35 2.0-3.[address] [place]: 2.70 1.7-3.4 cm Ao Asc: 3.40 2.1-3.4 cm Updated in Other Vendor System with Status of Final Neo Mena MD electronically signed on 12/20/2022 3:20:25 PM with status of Final
--- NOTE | 2022-12-20 07:10 | PHA.MEDREC ---
Pharmacy Consult ? Medication Reconciliation Pharmacy has completed the medication reconciliation. Reviewed med rec done by nursing
[2022-12-20 07:26] LABS: MANUAL DIFF FLAG NO
[2022-12-20 07:42] LABS: Basophils Absolute Auto 0.1 X10*3/uL (0.0-0.2); Basophils Percent Auto 1.2 % (0-2); Eosinophils Absolute Auto 0.2 X10*3/uL (0.0-0.4); Hematocrit 39.1 % (42.0-52.0); Hemoglobin 13.5 g/dl (14.0-18.0); Imm Gran Abs Auto 0.07 X10*3/uL (0.00-0.03); Imm Gran Pct Auto 0.7 % (0.0-0.4); Lymphocytes Absolute Auto 2.5 X10*3/uL (1.2-4.9); Lymphocytes Percent Auto 24.4 % (20-40); Mean Corpuscular HGB Conc 34.5 g/dl (31.0-36.0); Mean Corpuscular Hemoglobin 27.6 pg (27.0-33.0); Mean Platelet Volume 10.1 fL (9.4-12.4); Monocytes Absolute Auto 0.5 X10*3/uL (0.1-1.2); Monocytes Percent Auto 5.2 % (2-11); Neutrophils Absolute Auto 6.9 x10*3/uL (2.0-8.3); Neutrophils Percent Auto 66.5 % (45-73); Platelet Count 240 X10*3/uL (160-400); Red Blood Count 4.89 X10*6/uL (4.60-5.80); Red Cell Distribution Width 14.2 % (11.0-16.0); White Blood Count 10.4 X10*3/uL (4.8-10.8)
[2022-12-20 08:04] LABS: Troponin-I High Sensitivity 6.5 ng/L (<3.5-35.0)
[2022-12-20 08:05] LABS: Anion Gap 16 (12-20); Blood Urea Nitrogen 11 mg/dL (9-16); Carbon Dioxide 25 mmol/L (22-29); Chloride 105 mmol/L (96-108); Creatinine Clr Calc Pharmacy 139.1; Estimated Glomerular Filt Rate > 60; Glucose Random 142 mg/dL (60-115); Potassium 3.2 mmol/L (3.3-5.1); Sodium 143 mmol/L (135-145)
[2022-12-20 08:25] LABS: Thyroid Stimulating Hormone 3.24 uIU/mL (0.32-4.0)
[2022-12-20] MEDS: Enoxaparin Sodium 40 MG/0.4 ML SYRINGE SUBCUT (08:52)
[2022-12-20] MEDS: lisinopriL 10 MG TABLET PO (08:52)
[2022-12-20] MEDS: Acetaminophen 325 MG TABLET 650 MG PO ×2 (08:55→23:12)
--- NOTE | 2022-12-20 09:25 | MHC.CM.PN ---
MARQUITA 12/20/22, EMR REVIEWED, PT ADMITTED W/ELEVATED BP, CM MET W/PT WHO REPORTS HE LIVES W/GF, IS INDEP W/CARE AND USES A CPAP FOR DME, PT WORKS AND DENIES HOME SERVICES. PT VERIFIES PCP IS REGGIE NELSON AND HAS BEEN EDUCATED ON AND DECLINES TO COMPLETE A HCP AT THIS TIME. DC PLAN: HOME NO SERVICES W/GF FOR TRANSPORT.
--- NOTE | 2022-12-20 14:26 | P.PNIM_ITS ---
Subjective Subjective Date of Service: 12/20/22 Interval History: Feeling tired complaining of right-sided neck discomfort better than before, denies chest pain, no palpitations, no shortness of breath, tolerate CPAP at nighttime admitted for elevated blood pressures, denies nausea, vomiting, abdominal pain, tolerating diet, no diarrhea, no acute issues since admission. Review of Systems Review of Systems: Yes all other systems are reviewed and are negative Physical Exam Vital Signs: Vital Signs: Last Vital Signs Temp 97.7 F 12/20/22 11:34 Pulse 82 12/20/22 11:34 Resp 18 12/20/22 11:34 BP 156/76 H 12/20/22 11:34 Pulse Ox 95 12/20/22 11:34 O2 Del Method Room Air 12/20/22 11:34 BMI result Body Mass Index 27.1 Const: Other: General awake alert x3, resting comfortably in no acute distress. Neck mild right trapezius tenderness to palpation, no spasm, no JVD. CVS regular rate rhythm, Respiratory lungs clear to auscultation, no respiratory distress, no wheeze, no rhonchi. Gastrointestinal abdomen soft, nontender, bowel sounds audible, no guarding , no rigidity. Extremities no edema. Neuro nonfocal Skin no rash Psych appropriate affect Objective Data Active Medications Acetaminophen (Acetaminophen 325 Mg Tablet) 650 mg PO Q6H PRN PRN Reason: Pain, Mild (Pain Scale 1-3) Last Admin: 12/20/22 08:55 Dose: 650 mg Documented By: JESSENIA Amlodipine Besylate (Amlodipine Besylate 5 Mg Tablet) 5 mg PO DAILY [facility]; Protocol Last Admin: 12/20/22 08:52 Dose: 5 mg Documented By: JESSENIA Enoxaparin Sodium (Enoxaparin Sodium 40 Mg/0.4 Ml Syringe) 40 mg SUBCUT Q24H [facility] Last Admin: 12/20/22 08:52 Dose: 40 mg Documented By: JESSENIA Lisinopril (Lisinopril 10 Mg Tablet) 10 mg PO DAILY [facility]; Protocol Last Admin: 12/20/22 08:52 Dose: 10 mg Documented By: JESSENIA Melatonin (Melatonin 3 Mg Tablet) 6 mg PO BEDTIME PRN PRN Reason: Insomnia Ondansetron HCl (Ondansetron Hcl 4 Mg/2 Ml Vial) 4 mg IVPUSH Q8H PRN PRN Reason: Nausea and Vomiting Pharmacy Consult (Consult Rx Perform Med Rec) 1 each MISCELLANE ONCE PRN PRN Reason: Consult order Sodium Chloride (0.9 % Sodium Chloride Flush 3 Ml Syringe) 3 ml IVFLUSH QSHIFT [facility] Last Admin: 12/20/22 09:00 Dose: 3 ml Documented By: JESSENIA Labs 12/20/22 07:00 12/20/22 07:00 Labs: Laboratory Results - last 24 hr 12/19/22 12/19/22 12/19/22 02:30 21:25 21:25 MCV 78.4 L MCH 27.6 MCHC 35.2 RDW 13.9 Plt Count 273 MPV 9.6 Immature Gran % (Auto) 0.4 Neut % (Auto) 68.5 Lymph % (Auto) 23.1 [place] % (Auto) 5.4 Eos % (Auto) 1.7 Baso % (Auto) 0.9 Lymph # (Auto) 2.7 [place] # (Auto) 0.6 Eos # (Auto) 0.2 Baso # (Auto) 0.1 Abs Immat Gran (auto) 0.05 H Absolute Neuts (auto) 7.9 Absolute Nucleated RBC 0.000 Nucleated RBC % (auto) 0.0 PT INR Anion Gap 13 Estim Creat Clear Calc 122.1 Estimated GFR > 60 Random Glucose 128 H Calcium 10.0 Total Bilirubin 0.5 Direct Bilirubin 0.1 AST 23 ALT 48 H Alkaline Phosphatase 86 Troponin I High Sens Total Protein 6.8 Albumin 4.5 TSH Urine Color Yellow Urine Appearance Clear Urine pH 5.5 Ur Specific [place] 1.015 Urine Protein Negative Urine Glucose (UA) Negative Urine Ketones Negative Urine Blood Negative Urine Nitrite Negative Ur Leukocyte Esterase Negative Urine RBC 0-2 Urine WBC 0-5 Ur Squamous Epith Cells 0-2 Urine Bacteria None Seen Hyaline Casts 0-2 12/19/22 12/19/22 12/20/22 21:25 21:25 07:00 MCV MCH MCHC RDW Plt Count MPV Immature Gran % (Auto) Neut % (Auto) Lymph % (Auto) [place] % (Auto) Eos % (Auto) Baso % (Auto) Lymph # (Auto) [place] # (Auto) Eos # (Auto) Baso # (Auto) Abs Immat Gran (auto) Absolute Neuts (auto) Absolute Nucleated RBC Nucleated RBC % (auto) PT 11.1 INR 1.0 Anion Gap Estim Creat Clear Calc Estimated GFR Random Glucose Calcium Total Bilirubin Direct Bilirubin AST ALT Alkaline Phosphatase Troponin I High Sens 5.4 6.5 Total Protein Albumin TSH Urine Color Urine Appearance Urine pH Ur Specific [place] Urine Protein Urine Glucose (UA) Urine Ketones Urine Blood Urine Nitrite Ur Leukocyte Esterase Urine RBC Urine WBC Ur Squamous Epith Cells Urine Bacteria Hyaline Casts 12/20/22 12/20/22 07:00 07:00 MCV 80.0 MCH 27.6 MCHC 34.5 RDW 14.2 Plt Count 240 MPV 10.1 Immature Gran % (Auto) 0.7 H Neut % (Auto) 66.5 Lymph % (Auto) 24.4 [place] % (Auto) 5.2 Eos % (Auto) 2.0 Baso % (Auto) 1.2 Lymph # (Auto) 2.5 [place] # (Auto) 0.5 Eos # (Auto) 0.2 Baso # (Auto) 0.1 Abs Immat Gran (auto) 0.07 H Absolute Neuts (auto) 6.9 Absolute Nucleated RBC 0.000 Nucleated RBC % (auto) 0.0 PT INR Anion Gap 16 Estim Creat Clear Calc 139.1 Estimated GFR > 60 Random Glucose 142 H Calcium 9.0 D Total Bilirubin Direct Bilirubin AST ALT Alkaline Phosphatase Troponin I High Sens Total Protein Albumin TSH 3.24 Urine Color Urine Appearance Urine pH Ur Specific [place] Urine Protein Urine Glucose (UA) Urine Ketones Urine Blood Urine Nitrite Ur Leukocyte Esterase Urine RBC Urine WBC Ur Squamous Epith Cells Urine Bacteria Hyaline Casts Assessment and Plan (1) Hypertensive urgency: Status: Acute (2) Abnormal EKG: Status: Acute (3) FRANKIE (obstructive sleep apnea): Status: Acute Plan 37-year-old male with pertinent history ADHD presents to the emergency department for evaluation of neck pain, his BP on presentation 216/121 #.? Hypertensive urgency/emergency:? Patient received nitro paste and IV labetalol in the ER.? Will continue amlodipine 5 mg and increase dose of lisinopril to 10 mg follow blood pressure closely, follow echocardiogram, normal TSH, Avoid NSAIDs #.? Abnormal EKG: Troponin negative? Likely due to hypertension, no chest pain, ST depressions noted in I,II and avL.? Follow Echo , check lipid panel #.? Hypokalemia: Potassium 3.2, replace and repeat labs #.? Reactive leukocytosis, mild: Resolved no acute infection noted. # obstructive sleep apnea continue CPAP her, recommend weight reduction DVT prophylaxis:? Lovenox Cardiac diet Full code Admitted as observation Time Spent With Patient Time: Total time managing care of this patient today ____ minutes. Quality Stroke Does the patient have a stroke diagnosis?: No VTE Prior VTE?: No VTE Risk Level:: Medical - moderate - high VTE Device Contraindication: Treatment Not Indicated VTE Drug Contraindication: N/A - Med Ordered
[2022-12-20] MEDS: Potassium Chloride ER 20 MEQ TAB.ER.PRT 40 MEQ PO (15:04)
[2022-12-20] MEDS: Trolamine Salicylate 10 % Cream 85 GM TUBE 1 APPL TOPICAL (15:05)
--- NOTE | 2022-12-20 15:21 | PM.CNCAR ---
History of Present Illness History of Present Illness Date of Service: 12/20/22 Requesting physician: Elton Rosa Chief complaint: Elevated BP, abnormal EKG Narrative: Pleasant 37 year gentleman with ADHD were has been on Adderall for the last 3-4 months. He also had recent viral illness and was using decongestants but used it only 1 time. He said he was having muscular right-sided neck pain and went to urgent care where his blood pressure was elevated he was advised to go to the emergency department. 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 He did not have any history of cardiovascular issues in the past. He said he had high blood pressure noticed on 1 of the recent visits but repeat check was normal. He has family history of hypertension. He also has obesity and sleep apnea but is quite compliant with the CPAP. He is saying he was eating food from restaurants but recently started preparing food at home. He drinks 1 beer a night. [facility] Past Medical History Medical History Obesity FRANKIE (obstructive sleep apnea) FRANKIE (obstructive sleep apnea) Social History Social History Household Members: Significant Other Housing: Apartment Do you presently have visiting nurse or other home services: No Alcohol intake: never Patient Tobacco Use Status: Never used Tobacco service: No Current occupational status: employed Meds Allergies Allergy/AdvReac Type Severity Reaction Status Date / Time No Known Allergies Allergy Verified 05/11/21 14:54 [No Known Allergies*] Active Medications: Current Medications Acetaminophen (Acetaminophen 325 Mg Tablet) 650 mg PO Q6H PRN PRN Reason: Pain, Mild (Pain Scale 1-3) Last Admin: 12/20/22 08:55 Dose: 650 mg Amlodipine Besylate (Amlodipine Besylate 5 Mg Tablet) 5 mg PO DAILY [facility]; Protocol Last Admin: 12/20/22 08:52 Dose: 5 mg Enoxaparin Sodium (Enoxaparin Sodium 40 Mg/0.4 Ml Syringe) 40 mg SUBCUT Q24H [facility] Last Admin: 12/20/22 08:52 Dose: 40 mg Lisinopril (Lisinopril 10 Mg Tablet) 10 mg PO DAILY [facility]; Protocol Last Admin: 12/20/22 08:52 Dose: 10 mg Melatonin (Melatonin 3 Mg Tablet) 6 mg PO BEDTIME PRN PRN Reason: Insomnia Ondansetron HCl (Ondansetron Hcl 4 Mg/2 Ml Vial) 4 mg IVPUSH Q8H PRN PRN Reason: Nausea and Vomiting Pharmacy Consult (Consult Rx Perform Med Rec) 1 each MISCELLANE ONCE PRN PRN Reason: Consult order Sodium Chloride (0.9 % Sodium Chloride Flush 3 Ml Syringe) 3 ml IVFLUSH QSHIFT [facility] Last Admin: 12/20/22 15:07 Dose: 3 ml Home Medications Medication Instructions Recorded Confirmed Last Taken Type cholecalciferol (vitamin D3) 50 50 mcg PO DAILY 05/28/20 12/20/22 Unknown History mcg (2,000 unit) capsule dextroamphetamine-amphetamine ER 1 cap PO DAILY 05/28/20 12/20/22 Unknown History 15 mg 24hr capsule,extend release Physical Exam Vital Signs: Vital Signs: Last Vital Signs Temp 97.7 F 12/20/22 11:34 Pulse 82 12/20/22 11:34 Resp 18 12/20/22 11:34 BP 156/76 H 12/20/22 11:34 Pulse Ox 95 12/20/22 11:34 O2 Del Method Room Air 12/20/22 11:34 BMI result Body Mass Index 27.1 GENERAL APPEARANCE: in no acute distress, pleasant. NECK: no carotid bruit, no jugular venous distention. SKIN: no suspicious lesions, warm and dry. HEART: no murmurs, regular rate and rhythm. LUNGS: clear to auscultation bilaterally. ABDOMEN: soft, nontender. EXTREMITIES: no edema. PERIPHERAL PULSES: equal. NEUROLOGIC: No gross deficits, AAO X 3 Objective Labs and Meds 12/20/22 07:00 12/20/22 07:00 Lab results: Laboratory Results - last 24 hr 12/19/22 12/19/22 12/19/22 02:30 21:25 21:25 WBC 11.6 H RBC 5.22 Hgb 14.4 Hct 40.9 L MCV 78.4 L MCH 27.6 MCHC 35.2 RDW 13.9 Plt Count 273 MPV 9.6 Immature Gran % (Auto) 0.4 Neut % (Auto) 68.5 Lymph % (Auto) 23.1 [place] % (Auto) 5.4 Eos % (Auto) 1.7 Baso % (Auto) 0.9 Lymph # (Auto) 2.7 [place] # (Auto) 0.6 Eos # (Auto) 0.2 Baso # (Auto) 0.1 Abs Immat Gran (auto) 0.05 H Absolute Neuts (auto) 7.9 Absolute Nucleated RBC 0.000 Nucleated RBC % (auto) 0.0 PT INR Sodium 144 Potassium 3.2 L Chloride 105 Carbon Dioxide 29 Anion Gap 13 BUN 12 Creatinine 0.90 Estim Creat Clear Calc 122.1 Estimated GFR > 60 Random Glucose 128 H Calcium 10.0 Total Bilirubin 0.5 Direct Bilirubin 0.1 AST 23 ALT 48 H Alkaline Phosphatase 86 Troponin I High Sens Total Protein 6.8 Albumin 4.5 TSH Urine Color Yellow Urine Appearance Clear Urine pH 5.5 Ur Specific [place] 1.015 Urine Protein Negative Urine Glucose (UA) Negative Urine Ketones Negative Urine Blood Negative Urine Nitrite Negative Ur Leukocyte Esterase Negative Urine RBC 0-2 Urine WBC 0-5 Ur Squamous Epith Cells 0-2 Urine Bacteria None Seen Hyaline Casts 0-2 12/19/22 12/19/22 12/20/22 21:25 21:25 07:00 WBC RBC Hgb Hct MCV MCH MCHC RDW Plt Count MPV Immature Gran % (Auto) Neut % (Auto) Lymph % (Auto) [place] % (Auto) Eos % (Auto) Baso % (Auto) Lymph # (Auto) [place] # (Auto) Eos # (Auto) Baso # (Auto) Abs Immat Gran (auto) Absolute Neuts (auto) Absolute Nucleated RBC Nucleated RBC % (auto) PT 11.1 INR 1.0 Sodium Potassium Chloride Carbon Dioxide Anion Gap BUN Creatinine Estim Creat Clear Calc Estimated GFR Random Glucose Calcium Total Bilirubin Direct Bilirubin AST ALT Alkaline Phosphatase Troponin I High Sens 5.4 6.5 Total Protein Albumin TSH Urine Color Urine Appearance Urine pH Ur Specific [place] Urine Protein Urine Glucose (UA) Urine Ketones Urine Blood Urine Nitrite Ur Leukocyte Esterase Urine RBC Urine WBC Ur Squamous Epith Cells Urine Bacteria Hyaline Casts 12/20/22 12/20/22 07:00 07:00 WBC 10.4 RBC 4.89 Hgb 13.5 L Hct 39.1 L MCV 80.0 MCH 27.6 MCHC 34.5 RDW 14.2 Plt Count 240 MPV 10.1 Immature Gran % (Auto) 0.7 H Neut % (Auto) 66.5 Lymph % (Auto) 24.4 [place] % (Auto) 5.2 Eos % (Auto) 2.0 Baso % (Auto) 1.2 Lymph # (Auto) 2.5 [place] # (Auto) 0.5 Eos # (Auto) 0.2 Baso # (Auto) 0.1 Abs Immat Gran (auto) 0.07 H Absolute Neuts (auto) 6.9 Absolute Nucleated RBC 0.000 Nucleated RBC % (auto) 0.0 PT INR Sodium 143 Potassium 3.2 L Chloride 105 Carbon Dioxide 25 Anion Gap 16 BUN 11 Creatinine 0.79 Estim Creat Clear Calc 139.1 Estimated GFR > 60 Random Glucose 142 H Calcium 9.0 D Total Bilirubin Direct Bilirubin AST ALT Alkaline Phosphatase Troponin I High Sens Total Protein Albumin TSH 3.24 Urine Color Urine Appearance Urine pH Ur Specific [place] Urine Protein Urine Glucose (UA) Urine Ketones Urine Blood Urine Nitrite Ur Leukocyte Esterase Urine RBC Urine WBC Ur Squamous Epith Cells Urine Bacteria Hyaline Casts Imaging Radiologist's impression: Impressions Cervical Spine X-Ray 12/19/22 22:03 IMPRESSION: Normal cervical spine radiographs. Assessment and Plan (1) Hypertensive urgency: Status: Acute (2) Abnormal EKG: Status: Acute Plan Pleasant 37-year-old gentleman who is presenting for elevated blood pressures and EKG showing inferior Q-waves as well as poor R-wave progression. Echocardiography with contrast was performed which did not show any evidence of previous myocardial infarction. He also has no symptoms. I think his EKG changes are coincidental and do not coincide with any underlying infarct. His blood pressure is elevated and I think he has essential hypertension. Also use of Adderall can be a problem which she has not used for the last 3 weeks. I have advised him that he should not be using Adderall unless this is the last resort for his ADHD. Agree with amlodipine and lisinopril 10 mg. I think given his body habitus and salt intake he will benefit from a thiazide diuretic. I think he can be discharged home and can follow up with us in our office. Thank you for allowing me to participate in the care of your patient. Please feel free to contact me if you have any questions. Time Spent With Patient Time: Total time managing care of this patient today ____ minutes. Procedures Date of Service Date of Service: 12/20/22
[2022-12-21 03:54] VITALS: BP 151/107; PULSE 68; RESP 18; TEMP 36.5; O2SAT 94
[2022-12-21 08:00] VITALS: BP 157/78; PULSE 72; RESP 20; TEMP 36.2; O2SAT 97
[2022-12-21 08:22] LABS: Anion Gap 12 (12-20); Blood Urea Nitrogen 14 mg/dL (9-16); Calcium 9.4 mg/dL (8.4-10.2); Carbon Dioxide 30 mmol/L (22-29); Chloride 106 mmol/L (96-108); Cholesterol 179 mg/dL; Creatinine Clr Calc Pharmacy 103.7; Estimated Glomerular Filt Rate > 60; Glucose Random 140 mg/dL (60-115); HDL Cholesterol 25 mg/dL; LDL Cholesterol Calculated 89 mg/dl; Potassium 3.7 mmol/L (3.3-5.1); Sodium 144 mmol/L (135-145); Triglycerides 325 mg/dL
[2022-12-21] MEDS: amLODIPine Besylate 5 MG TABLET PO (08:48)
[2022-12-21] MEDS: 0.9 % Sodium Chloride Flush 3 ML SYRINGE IVFLUSH (08:48)
[2022-12-21] MEDS: Enoxaparin Sodium 40 MG/0.4 ML SYRINGE SUBCUT (08:48)
[2022-12-21] MEDS: hydroCHLOROthiazide 12.5 MG TABLET PO (08:48)
[2022-12-21] MEDS: lisinopriL 10 MG TABLET PO (08:49)
--- NOTE | 2022-12-21 10:39 | MHC.CM.PN ---
PT MEDICALLY CLEARED FOR D/C HOME NO SERVICES W/GF FOR TRANSPORT
[2022-12-21 12:00] VITALS: BP 134/75; PULSE 78; RESP 20; TEMP 36.5; O2SAT 96
--- NOTE | 2022-12-21 14:01 | PM.PNCARD ---
Subjective Subjective Date of Service: 12/21/22 Interval history: seen and examined at bedside. BP improving. Physical Exam Vital Signs: Last Vital Signs Temp 97.7 F 12/21/22 12:00 Pulse 78 12/21/22 12:00 Resp 20 12/21/22 12:00 BP 134/75 12/21/22 12:00 Pulse Ox 96 12/21/22 12:00 O2 Del Method Room Air 12/21/22 12:00 BMI result Body Mass Index 27.1 GENERAL APPEARANCE: in no acute distress, pleasant. NECK: no carotid bruit, no jugular venous distention. SKIN: no suspicious lesions, warm and dry. HEART: no murmurs, regular rate and rhythm. LUNGS: clear to auscultation bilaterally. ABDOMEN: soft, nontender. EXTREMITIES: no edema. PERIPHERAL PULSES: equal. NEUROLOGIC: No gross deficits, AAO X 3 Objective Labs and Meds 12/20/22 07:00 12/21/22 07:42 Lab results: Laboratory Results - last 24 hr 12/21/22 07:42 Sodium 144 Potassium 3.7 Chloride 106 Carbon Dioxide 30 H Anion Gap 12 BUN 14 Creatinine 1.06 Estim Creat Clear Calc 103.7 Estimated GFR > 60 Random Glucose 140 H Calcium 9.4 Triglycerides 325 Cholesterol 179 LDL Cholesterol, Calc 89 HDL Cholesterol 25 Progress Note: A&P Assessment and plan (1) Essential hypertension: Status: Acute Plan 37 male with elevated BPs. BP improving. Echo reviewed and is not showing any RWMA. ECG has inferior Q waves but no evidence of old MD or symptoms. f/u in office. Can be discharged home. Time Spent With Patient Time: Total time managing care of this patient today ____ minutes. Progress Note: Quality Stroke Does the patient have a stroke diagnosis?: No Procedures Date of Service Date of Service: 12/21/22
--- NOTE | 2022-12-21 14:26 | P.DS_ITS ---
DS: Providers Provider Date of Service: 12/21/22 Date of admission: 12/19/22 23:53 Primary care physician: Jose Rodriguez DO Consults: 12/20/22 07:58 Consult to Cardiology Routine Consulting Provider: Neo Mena Reason for consultation: abnormal ekg htn Has provider been notified: No DS: Diagnosis Discharge Diagnosis (1) Essential hypertension: Status: Acute DS: Summary Hospital Course Hospital Course: Date of Service: 12/19/22 Chief Complaint: Neck pain This is a 37-year-old male with pertinent history ADHD presents to the emergency department for evaluation of neck pain.? Patient states he woke up with neck pain and numbness in his right upper extremity 1 week ago.? The numbness resolved but he continued to have neck discomfort.? It improved through the week but returned on the day of presentation.? Patient went to Urgent Care with blood pressure was found to be elevated and he was sent to the ER.? Patient denies chest discomfort or shortness of breath.? No palpitations.? States his blood pressure was found to be elevated in July during his PCP visit but it was attributed to the holiday diet .? Patient has never taken an antihypertensive or been to a electronic game developer.? Denies abdominal pain, blurring of vision, nausea, vomiting.? No fever, chills, changes in urinary or bowel habits. In the emergency department, patient's blood pressure was found to be 216/121 upon initial presentation. Hospital course 37-year-old male with pertinent history ADHD presents to the emergency department for evaluation of neck pain, his BP on presentation 216/121 #.? Hypertensive urgency patient noted to have significantly elevated blood pressures in the emergency room treated with nitro paste and IV labetalol and subsequently admitted to medical floor and placed on amlodipine 5 mg, lisinopril 10 mg and hydrochlorothiazide 12.5 mg blood pressure improved significantly and echocardiogram was obtained that showed no wall motion abnormality, patient evaluated by electronic game developer and they fell patient has essential hypertension recommend close outpatient follow-up with Cardiology and primary care physician. Patient noted to have normal TSH she has been recommended to avoid NSAIDs and adderral if possible. #.? Abnormal EKG:? Patient EKG showed inferior Q-waves but no evidence of acute ischemia, Troponin negative,no chest pain, echo showed no wall motion abnorm ality seen by Cardiology, no further workup warranted. #.? Hypokalemia:? Repleted and normalized #.? Reactive leukocytosis, mild:? Resolved no acute infection noted. # ? obstructive sleep apnea continue CPAP , recommend weight reduction Time Spent with Patient Time attestation: Total time managing care of this patient today ____ minutes. Discharge coordination time: Greater than 30 minutes Quality: Safe Use of Opioids Does Pt have an Active Cancer Diagnosis on the Problem List?: No Quality: Stroke Does the patient have a stroke diagnosis?: No Physical Exam Vital Signs: Vital Signs: Last Vital Signs Temp 97.7 F 12/21/22 12:00 Pulse 78 12/21/22 12:00 Resp 20 12/21/22 12:00 BP 134/75 12/21/22 12:00 Pulse Ox 96 12/21/22 12:00 O2 Del Method Room Air 12/21/22 12:00 BMI result Body Mass Index 27.1 Const: Other: General awake alert x3, resting comfortably in no acute distress.? Neck no spasm, no JVD. CVS? regular rate rhythm, Respiratory lungs clear to auscultation, no respiratory distress, no wheeze, no rhonchi. Gastrointestinal abdomen soft, non tender, bowel sounds audible, no guarding , no rigidity. Extremities no edema. Neuro non focal Skin no rash Psych appropriate affect? DS: Data Data Completed and Pending Labs on day of discharge: Laboratory Results - last 24 hr 12/21/22 07:42 Sodium 144 Potassium 3.7 Chloride 106 Carbon Dioxide 30 H Anion Gap 12 BUN 14 Creatinine 1.06 Estim Creat Clear Calc 103.7 Estimated GFR > 60 Random Glucose 140 H Calcium 9.4 Triglycerides 325 Cholesterol 179 LDL Cholesterol, Calc 89 HDL Cholesterol 25 Discharge Plan Discharge Patient Disposition: Home, Self-Care Discharge Diagnosis: Hypertensive urgency Abnormal EKG Obstructive sleep apnea Referrals: Jose Rodriguez DO [Primary Care Provider] - 1 Week Discharge Medications: New amlodipine 5 mg Tablet 5 mg PO DAILY Qty: 30 0RF Protocol: Hold for SBP< HOLD for SBP < : 90 lisinopril 10 mg Tablet 10 mg PO DAILY Qty: 30 0RF Protocol: Hold for SBP< HOLD for SBP < : 90 hydrochlorothiazide 12.5 mg Tablet 12.5 mg PO DAILY Qty: 30 0RF Protocol: Hold for SBP< HOLD for SBP < : 90 Continued dextroamphetamine-amphetamine 15 mg capsule,extended release 24hr 1 cap PO DAILY cholecalciferol (vitamin D3) 50 mcg (2,000 unit) capsule 50 mcg PO DAILY Discharge Orders: Discharge Order (Routine); Ordered 12/21/22 Ordered By: Elton Rosa Diet: Advance to usual diet Activity on Discharge: As tolerated Stand Alone Forms: Patient Portal Discharge page Care Plan Goals: Essential hypertension take blood pressure medications as prescribed Health Concerns: Obstructive sleep apnea recommend low-calorie diet Plan of Treatment: Follow-up with primary care physician call for appointment Assessment: As above
[2022-12-21 15:11] VITALS: BP 162/85; PULSE 81; RESP 20; TEMP 36.1; O2SAT 96
== END 2022-12-21 15:41 | disposition home or self-care (01) ==
LOC: HO.ED 23:56 → HO.EDOVER 12-20 00:01 → HO.IMC 12-20 00:40
PROVIDERS: Physician Assistant; Admitting Provider Student in an Organized Health Care Education/Training Program; Emergency Provider Emergency Medicine; PCP Internal Medicine; Visit Provider Hospitalist
DX: I16.0 Hypertensive urgency (principal); R94.31 Abnormal electrocardiogram [ECG] [EKG]; E87.6 Hypokalemia; D72.829 Elevated white blood cell count, unspecified; M54.2 Cervicalgia; I10 Essential (primary) hypertension; F90.9 Attention-deficit hyperactivity disorder, unspecified type; G47.33 Obstructive sleep apnea (adult) (pediatric); Z99.89 Dependence on other enabling machines and devices; E66.9 Obesity, unspecified; Z68.27 Body mass index [BMI] 27.0-27.9, adult; Z79.899 Other long term (current) drug therapy
CPT/HCPCS: 36415; 72040; 80048; 80061; 80076; 81001; 84443; 84484; 85025; 85610; 93005; 93306; 96372; 96374; 96375; 99222; 99285; J1650; J1885; Q9957

== ENCOUNTER 2023-07-17 10:28 | Outpatient (REF) | payer OTHER, SELFPAY ==
[2023-07-17 10:41] LABS: MANUAL DIFF FLAG NO
--- NOTE | 2023-07-17 10:43 | ECG_ITS ---
Test Reason : PRIM HTN Blood Pressure : / mmHG Vent. Rate : 081 BPM Atrial Rate : 081 BPM P-R Int : 148 ms QRS Dur : 116 ms QT Int : 428 ms P-R-T Axes : 050 -21 132 degrees QTc Int : 497 ms Normal sinus rhythm Minimal voltage criteria for LVH, may be normal variant ( Allan product ) T wave abnormality, consider lateral ischemia Prolonged QT Left axis deviation Abnormal ECG When compared with ECG of 19-DEC-2022 21:27, Minimal criteria for Anterior infarct are no longer Present Referred By: Jose Rodriguez Electronically Signed By:NICOLE QUEEN MD
[2023-07-17 10:58] LABS: Basophils Absolute Auto 0.1 X10*3/uL (0.0-0.2); Eosinophils Absolute Auto 0.2 X10*3/uL (0.0-0.4); Eosinophils Percent Auto 1.8 % (0-4); Hematocrit 42.7 % (42.0-52.0); Hemoglobin 14.5 g/dl (14.0-18.0); Imm Gran Abs Auto 0.03 X10*3/uL (0.00-0.03); Imm Gran Pct Auto 0.3 % (0.0-0.4); Lymphocytes Absolute Auto 2.1 X10*3/uL (1.2-4.9); Mean Corpuscular Hemoglobin 27.1 pg (27.0-33.0); Mean Corpuscular Volume 79.8 fL (80.0-98.0); Mean Platelet Volume 9.9 fL (9.4-12.4); Monocytes Absolute Auto 0.5 X10*3/uL (0.1-1.2); Monocytes Percent Auto 5.2 % (2-11); Neutrophils Absolute Auto 6.3 x10*3/uL (2.0-8.3); Neutrophils Percent Auto 68.7 % (45-73); Platelet Count 261 X10*3/uL (160-400); Red Blood Count 5.35 X10*6/uL (4.60-5.80); Red Cell Distribution Width 14.2 % (11.0-16.0); White Blood Count 9.1 X10*3/uL (4.8-10.8)
[2023-07-17 11:37] LABS: Alanine Aminotransferase 42 U/L (0-40); Albumin Level 4.4 g/dL (3.5-5.0); Alkaline Phosphatase 87 U/L (39-117); Anion Gap 9 (12-20); Aspartate Amino Transferase 24 U/L (5-37); Bilirubin Total 0.6 mg/dL (0.0-1.0); Blood Urea Nitrogen 14 mg/dL (9-16); Calcium 9.6 mg/dL (8.4-10.2); Carbon Dioxide 30 mmol/L (22-29); Chloride 104 mmol/L (96-108); Cholesterol 175 mg/dL (<200); Estimated Glomerular Filt Rate > 60; Glucose Fasting 142 mg/dL (60-99); HDL Cholesterol 26 mg/dL (>40); LDL Cholesterol Calculated 91 mg/dL (<100); Potassium 3.3 mmol/L (3.3-5.1); Sodium 140 mmol/L (135-145); Total Protein 7.1 g/dL (6.5-8.0); Triglycerides 294 mg/dL (<150)
[2023-07-17 11:56] LABS: Thyroid Stimulating Hormone 1.64 uIU/mL (0.32-4.0); Vitamin D 25-OH Total 26.4 ng/mL (>30)
== END 2023-07-17 10:29 | disposition home or self-care (01) ==
LOC: HO.LAB 10:28
PROVIDERS: PCP Internal Medicine; Visit Provider Internal Medicine
DX: I10 Essential (primary) hypertension (principal); G47.33 Obstructive sleep apnea (adult) (pediatric); E55.9 Vitamin D deficiency, unspecified; F90.0 Attention-deficit hyperactivity disorder, predominantly inattentive type; E66.01 Morbid (severe) obesity due to excess calories
CPT/HCPCS: 36415; 80053; 80061; 82306; 84443; 85025; 93005

== ENCOUNTER 2024-04-23 12:54 | Outpatient (REF) | payer SELFPAY ==
[2024-04-26 00:27] LABS: TS Negative Control Passed; TS Panel A 0; TS Panel B 0; TS Positive Control Passed; TSpotTB Negative (Negative)
== END 2024-04-23 12:55 | disposition home or self-care (01) ==
LOC: HO.LAB 12:54
PROVIDERS: PCP Internal Medicine; Visit Provider Internal Medicine
DX: Z11.1 Encounter for screening for respiratory tuberculosis (principal)
CPT/HCPCS: 36415; 86481

== ENCOUNTER 2024-07-06 09:27 | Outpatient (REF) | payer OTHER, SELFPAY ==
[2024-07-06 10:43] LABS: Basophils Absolute Auto 0.1 X10*3/uL (0.0-0.2); Basophils Percent Auto 1.3 % (0-2); Eosinophils Absolute Auto 0.1 X10*3/uL (0.0-0.4); Hematocrit 44.1 % (42.0-52.0); Hemoglobin 15.7 g/dl (14.0-18.0); Imm Gran Abs Auto 0.02 X10*3/uL (0.00-0.03); Imm Gran Pct Auto 0.3 % (0.0-0.4); Lymphocytes Absolute Auto 1.6 X10*3/uL (1.2-4.9); Lymphocytes Percent Auto 22.1 % (20-40); MANUAL DIFF FLAG SCAN; Mean Corpuscular HGB Conc 35.6 g/dl (31.0-36.0); Mean Corpuscular Hemoglobin 27.8 pg (27.0-33.0); Mean Corpuscular Volume 78.2 fL (80.0-98.0); Mean Platelet Volume 10.8 fL (9.4-12.4); Monocytes Absolute Auto 0.3 X10*3/uL (0.1-1.2); Monocytes Percent Auto 4.6 % (2-11); Neutrophils Percent Auto 70.7 % (45-73); PLT CLUMP 1; Red Blood Count 5.64 X10*6/uL (4.60-5.80); Red Cell Distribution Width 13.2 % (11.0-16.0); SCAN SMEAR FLAG 1
[2024-07-06 10:46] LABS: Estimated Average Glucose 286 mg/dL; Hemoglobin A1C 430.3338 umol/L; Hemoglobin A1c % 11.6 % (<6.0); Total Hemoglobin (HGBA1C) 4148.0395 umol/L
[2024-07-06 10:47] LABS: White Blood Count 7.1 X10*3/uL (4.8-10.8)
[2024-07-06 11:16] LABS: Platelet Count 215 X10*3/uL (160-400); SLIDE REVIEW VERIFIED
[2024-07-06 11:22] LABS: Alanine Aminotransferase 29 U/L (0-40); Albumin Level 4.2 g/dL (3.5-5.0); Alkaline Phosphatase 109 U/L (39-117); Anion Gap 18 (12-20); Aspartate Amino Transferase 34 U/L (5-37); Bilirubin Total 0.6 mg/dL (0.0-1.0); Blood Urea Nitrogen 13 mg/dL (9-16); Calcium 9.7 mg/dL (8.4-10.2); Carbon Dioxide 24 mmol/L (22-29); Chloride 102 mmol/L (96-108); Cholesterol 175 mg/dL (<200); Estimated Glomerular Filt Rate > 60; Glucose Fasting 289 mg/dL (60-99); HDL Cholesterol 27 mg/dL (>40); Potassium 3.6 mmol/L (3.3-5.1); Sodium 140 mmol/L (135-145); Total Protein 6.9 g/dL (6.5-8.0); Triglycerides 483 mg/dL (<150)
[2024-07-06 11:28] LABS: Thyroid Stimulating Hormone 1.24 uIU/mL (0.32-4.0); Vitamin D 25-OH Total 28.2 ng/mL (>30)
== END 2024-07-06 09:28 | disposition home or self-care (01) ==
LOC: HO.LAB 09:27
PROVIDERS: PCP Internal Medicine; Visit Provider Internal Medicine
DX: I10 Essential (primary) hypertension (principal); E55.9 Vitamin D deficiency, unspecified; R63.4 Abnormal weight loss; Z13.1 Encounter for screening for diabetes mellitus
CPT/HCPCS: 36415; 80053; 80061; 82306; 83036; 84443; 85025

== ENCOUNTER 2024-10-16 16:15 | Outpatient (AMB) | payer OTHER, SELFPAY ==
--- NOTE | 2024-10-16 16:16 | MHC.PC.OV ---
Vital Signs 10/16/24 16:25 Height 5 ft 9.5 in Weight 290 lb BMI 42.2 BP 180/120 H Blood Pressure Location Rt brachial Pulse 82 Pulse Source Pulse Oximeter Temp 97.4 F Pulse Oximetry (%) 98 Intake Visit Reasons: follow up Intake Note: would like to discuss ADHD meds Allergies No Known Allergies [No Known Allergies*] Allergy (Verified 10/16/24 16:47) Medication List - Last Reconciled 10/16/24 by Arabella Jackson PA-C amlodipine 2.5 mg PO DAILY atorvastatin 20 mg PO BEDTIME cholecalciferol (vitamin D3) 50 mcg PO DAILY flash glucose scanning reader ([employer] Paolo 14 Day [place]) As directed flash glucose sensor ([employer] Paolo 14 Day Sensor kit) As directed lisinopril-hydrochlorothiazide 20-25 mg 1 tab PO DAILY metformin 1,000 mg (2 x 500 mg) PO BID 90 days [facility] Medical History (Updated 10/16/24 @ 16:54 by Arabella Jackson PA-C) Morbid obesity with BMI of 40.0-44.9, adult Colon cancer screening Diabetes type 2 FRANKIE (obstructive sleep apnea) Hypospadias Vitamin D deficiency ADHD Abnormal EKG Obesity FRANKIE (obstructive sleep apnea) Surgical History H/O wisdom tooth extraction Social History Household Members: Significant Other Housing: Apartment Do you presently have visiting nurse or other home services: No Alcohol intake: never Patient Tobacco Use Status: Never used Tobacco service: No Current occupational status: employed Physical exam (Primary Care) Vital Signs: Last Vital Signs Temp 97.4 F 10/16/24 16:25 Pulse 82 10/16/24 16:25 BP 180/120 H 10/16/24 16:25 Pulse Ox 98 10/16/24 16:25 Care Plan Goal for BP management: 30/80. Patient currently on lisinopril/hydrochlorothiazide combo 10/12.5 mg. Will increase to lisinopril 20 mg and hydrochlorothiazide 25 mg. Will also add amlodipine 2.5 mg. Patient to check his blood pressure at home over the next 2 weeks and bring it to his 2 week follow-up. BMI result Body Mass Index 42.2 BMI Assessment/Plan discussion: High BMI High, discussed plan: lifestyle, weight reduction, dietary, physical activity and alcohol moderation Tobacco/Smoking Status: Tobacco use Status Patient Tobacco Use Status Never used Tobacco 10/16/24 16:17 Coding Level of Care Code New Pt Level 5 (51740) Complex EM visit Add On G2211 Diagnoses FRANKIE (obstructive sleep apnea) G47.33 Vitamin D deficiency E55.9 ADHD F90.9 Essential hypertension I10 Obesity E66.9 Diabetes type 2 E11.9 Morbid obesity with BMI of 40.0-44.9, adult E66.01; Z68.41 Assessment & Plan Assessment & Plan (1) FRANKIE (obstructive sleep apnea): Comment: FRANKIE IS WELL TREATED WITH THE USE OF CPAP. HE IS 100% COMPLIANT AND BENEFITTING. ADVISED TO CONTINUE USING CPAP EVERY NIGHT . NO ISSUES AT THIS TIME . Code(s): G47.33 - Obstructive sleep apnea (adult) (pediatric) Category: Medical Plan: Patient utilizing CPAP. Condition is stable and chronic will continue to monitor. (2) Vitamin D deficiency: Code(s): E55.9 - Vitamin D deficiency, unspecified Category: Medical Plan: Patient currently on vitamin-D supplement. Condition is chronic and stable continue to monitor. (3) ADHD: Code(s): F90.9 - Attention-deficit hyperactivity disorder, unspecified type Category: Medical Plan: Patient currently on no medication for ADHD. He reports he has not been on medication for this due to his elevated blood pressure and was told by an emergency provider that he should not be on this medication until his blood pressure has been controlled. Blood pressure is still elevated. Will refer to psychiatry for further evaluation and management for ADHD with medications that will not affect the patient's blood pressure. Condition is chronic and stable continue to monitor. (4) Essential hypertension: Code(s): I10 - Essential (primary) hypertension Category: Medical Plan: Patient hypertensive urgency asymptomatic. Denies any symptoms. Blood pressure 180/120. Currently on lisinopril 10 mg and hydrochlorothiazide combo 12.5 mg. Will increase to lisinopril 20 mg and hydrochlorothiazide 25 mg. Will add amlodipine 2.5 mg daily. Patient will check his blood pressure over the next 2 weeks and bring a diary at his next 2 week visit. If patient develops any chest pain, dizziness, weakness or any other cardiac or neuro related symptoms he is instructed to go to the emergency department immediately. Condition is chronic and stable continue to monitor. (5) Obesity: Comment: HE REMAINS MORBIDLY OBESE, THIS TIME HAS GAINED ABOUT 3 LB SINCE LAST VISIT. DISCUSSED WITH HIM IN DETAIL, HE MUST LIMIT HIS CALORIES INTAKE. AND HE SHOULD EXERCISE DAILY SUCH WALKING AT LEAST FOR HALF AN HOUR. ENCOURAGED TO JOIN A WEIGHT MANAGEMENT PROGRAM. Code(s): E66.9 - Obesity, unspecified Category: Medical Plan: Condition is chronic and stable. Will refer to a dietitian. (6) Diabetes type 2: Code(s): E11.9 - Type 2 diabetes mellitus without complications Category: Medical Plan: Patient currently on metformin 1000 mg b.i.d.. Last A1c level was June 2024 which revealed 11.6. Patient has not been checking his blood glucose level. Will send [employer] Paolo sensor with reader so patient can start checking his blood glucose levels 3 to 4 times a day before meals. He will bring this with him to his next 2 week visit and we are considering starting him on another oral regimen for diabetes along with possibly insulin to help with the weight loss such as month Monjourol, Trulicity, semaglutide. Condition is chronic and stable continue to monitor. (7) Morbid obesity with BMI of 40.0-44.9, adult: Code(s): E66.01 - Morbid (severe) obesity due to excess calories; Z68.41 - Body mass index [BMI] 40.0-44.9, adult Category: Medical Plan: Patient being referred to dietitian. Patient to improve his diet and exercise regimen. Condition is chronic and stable continue to monitor. Plan Plan - to enhance blood pressure control: Will increase lisinopril/hydrochlorothiazide from 10/12.5 mg to 20/25 mg. Will also add amlodipine 2.5 mg - Initiate referral to psychiatry for ADHD management to explore non-stimulant medication options. - Obtain blood pressure readings at home and monitor in a diary for the next two weeks. - Recommended tensioning machine operator referral for dietary management. - Planned medication adjustment if dyslipidemia and diabetes remain uncontrolled. - Recommend fasting blood work for reevaluation of Hemoglobin A1c and lipid profile. Orders: Orders Complete Blood Count Auto Diff Today Z00.00 - Encounter for general adult medical examination without abnormal findings Comprehensive [place]. Panel Fast Today Z00.00 - Encounter for general adult medical examination without abnormal findings Hemoglobin A1c Today Z00.00 - Encounter for general adult medical examination without abnormal findings Lipid Panel Today Z00.00 - Encounter for general adult medical examination without abnormal findings Magnesium Today Z00.00 - Encounter for general adult medical examination without abnormal findings Microalbumin, Random (w Creat) Today E11.9 - Type 2 diabetes mellitus without complications PSA,Total (Free>4and<10) Today Z00.00 - Encounter for general adult medical examination without abnormal findings Vitamin D 25-OH Total Today Z00.00 - Encounter for general adult medical examination without abnormal findings TSH reflex Free T4 Today Z00.00 - Encounter for general adult medical examination without abnormal findings Liver Panel Today Z00.00 - Encounter for general adult medical examination without abnormal findings Vitamin B1 Today Z00.00 - Encounter for general adult medical examination without abnormal findings Vitamin B12 and Folate Today Z00.00 - Encounter for general adult medical examination without abnormal findings C Reactive Protein Today Z00.00 - Encounter for general adult medical examination without abnormal findings Referrals Psychiatry Outpatient Consultation Service F90.9 - Attention-deficit hyperactivity disorder, unspecified type, I10 - Essential (primary) hypertension Gastroenterology Referral Z12.11 - Encounter for screening for malignant neoplasm of colon Cook Apprentice [employer] Referral E66.9 - Obesity, unspecified Medications: New amlodipine 2.5 mg PO DAILY 90 tabs 0RF flash glucose sensor ([employer] Paolo 14 Day Sensor kit) As directed 1 ea 0RF E11.9 - Type 2 diabetes mellitus without complications lisinopril-hydrochlorothiazide 20-25 mg 1 tab PO DAILY 90 tabs 0RF flash glucose scanning reader ([employer] [place] 14 Day [place]) As directed 1 ea 0RF Patient Instructions: Patient Instructions - Begin taking lisinopril 20/25 mg as prescribed. - Start amlodipine 2.5 mg daily. - Monitor blood pressure daily or as advised and keep a record. - Begin monitoring blood sugar using Freestyle Paolo [place], especially before meals. - Continue current medications: atorvastatin and metformin. - Schedule an appointment with the tensioning machine operator for new dietary guidelines. - Follow up with psychiatry as referred. - If experiencing chest pain, dizziness, or if blood pressure remains uncontrolled, seek immediate medical attention. - Return for follow-up in two weeks with home blood pressure and glucose recordings. Scribe Plan - Not visible on output: History of Present Illness The patient is a 39-year-old male presenting with concerns related to hypertension management and exploring medication options for ADHD. The hypertension was escalated after an emergency room visit in November 2002 due to excessive blood pressure. Since then, lisinopril has been prescribed, currently at a dose of 10 mg. Despite ongoing treatment, the blood pressure was recorded at 180/120 mmHg during this visit. The patient denies experiencing chest pain but acknowledges an ongoing trend of high readings. The hypertension previously led to discontinuation of Adderall XR due to assembly machine tool setter recommendations, as it exacerbated blood pressure issues. Current medications include lisinopril, which will require adjustment, atorvastatin for dyslipidemia, and metformin for diabetes management. The patient's Type 2 Diabetes Mellitus was diagnosed with a Hemoglobin A1c of 11.6 in June 2024, indicating poor glycemic control. The patient feels overwhelmed due to ADHD and has expressed difficulty maintaining weight and controlling blood sugars due to lack of focus and energy. Home blood sugar monitoring was documented as not practiced currently. Family history of colon cancer was mentioned, raising considerations for potential future screenings given patient's age and family history. Review of Systems - Cardiovascular: Denies chest pain and dizziness. - Neurological: Denies dizziness. - Gastrointestinal: Denies abdominal pain, changes in bowel habits. Physical Exam Appearance: Alert. Oriented X3. No acute distress. Head: Normal external exam. Normocephalic. Atraumatic. Eyes: Pupils are equal, round, and reactive to light. Extraocular movements intact. Conjunctiva and sclera normal. Eyelids normal. Ears: External auditory canal normal. Tympanic membranes normal. Throat: Pharynx normal. Uvula midline. Moist mucous membranes. Neck: Normal inspection. Neck supple. Full range of motion. No adenopathy. Thyroid Normal. No meningeal signs. No neck mass noted. Cardiovascular: Blood pressure is 180/120. Normal heart rate and rhythm. Heart sound normal. No murmurs noted. Pulses normal throughout. Respiratory: No respiratory distress. Painless inspiration. Breath sounds normal. No wheezes/rales/rhonchi noted. Chest nontender. No accessory muscle usage noted or decreased air movement noted. Abdomen: Soft and nontender. Bowel sounds normal in all 4 quadrants. No distention noted. No organomegaly noted. No visible injury noted. Back: No costovertebral angle tenderness. Full range of motion noted. Skin: Skin warm and dry. Normal skin color. Normal skin turgor. No rashes/lesions/lacerations noted. Extremities: No lower extremity edema. Extremities exhibit normal range of motion. Extremities nontender. Neuro: Oriented X 3. No motor deficit. No sensory deficit. Reflexes normal. Results - Labs: Hemoglobin A1c previously 11.6; Triglycerides high; Normal kidney function; High glucose levels; Normal CBC, Normal potassium; High Vitamin D. Plan - to enhance blood pressure control: Will increase lisinopril/hydrochlorothiazide from 10/12.5 mg to 20/25 mg. Will also add amlodipine 2.5 mg - Initiate referral to psychiatry for ADHD management to explore non-stimulant medication options. - Obtain blood pressure readings at home and monitor in a diary for the next two weeks. - Recommended tensioning machine operator referral for dietary management. - Planned medication adjustment if dyslipidemia and diabetes remain uncontrolled. - Recommend fasting blood work for reevaluation of Hemoglobin A1c and lipid profile. Patient was informed and verbally consented to the use of an ambient scribe for clinic note documentation during this visit. Discussion Notes I discussed with the patient the significance of controlling his blood pressure due to elevated readings potentially leading to cardiovascular complications. We addressed the medication increase of lisinopril and addition of amlodipine to optimize blood pressure control. I emphasized the importance of the patient starting blood glucose monitoring with the Freestyle Paolo to better manage Type 2 Diabetes Mellitus. We discussed referral to psychiatry for composed management of ADHD to prevent exacerbation of hypertension. We explored the option of consulting a tensioning machine operator for dietary advice which may consequentially assist in managing weight, diabetes, and dyslipidemia. The patient was informed of the risks associated with uncontrolled blood glucose levels, added cardiovascular risk, neuropathy, retinopathy, and advice on monitoring symptoms suggesting complications. A return visit in two weeks was planned for further evaluation. Patient Instructions - Begin taking lisinopril 20/25 mg as prescribed. - Start amlodipine 2.5 mg daily. - Monitor blood pressure daily or as advised and keep a record. - Begin monitoring blood sugar using Freestyle Paolo [place], especially before meals. - Continue current medications: atorvastatin and metformin. - Schedule an appointment with the tensioning machine operator for new dietary guidelines. - Follow up with psychiatry as referred. - If experiencing chest pain, dizziness, or if blood pressure remains uncontrolled, seek immediate medical attention. - Return for follow-up in two weeks with home blood pressure and glucose recordings.
--- OUTSIDE RECORDS SUMMARY | 2024-10-16 16:17 | XMS_ITS | Patient Health Record ---
Author Organization Jose Rodriguez DO, FACP Address [address], [place] [id number] Care Team Providers Care Operations Research Scientist Name Role Phone JenniferJose ashley Primary Care Provider [phone] ALLERGIES No Known Allergies RESULTS Component Value Reference Range Notes T Spot TB Reviewed date:04/26/2024 09:03:54 AM Interpretation:Negative Performing Lab:[facility], [address] [place] [phone] Notes/Report: TSpotTB Negative Negative A negative test result does not exclude the possibility of exposure to or infection with Mycobacterium tuberculosis (M. tuberculosis). Patients with recent exposure to TB infected individuals exhibiting a negative T-SPOT.TB result should be considered for retesting within 6 weeks or if other relevant clinical symptoms indicate. Results from T-SPOT.TB testing must be used in conjunction with each individual's epidemiological history, current medical status, and results of other diagnostic evaluations. The T-SPOT.TB test is qualitative and results are reported as positive, borderline, or negative, given that the test controls perform as expected. In line with the Centers for Disease Control and Prevention's 2010 recommendation to report quantitative measurements alongside the qualitative result, the laboratory provides spot counts for informational purposes only. The T-SPOT.TB test should not be interpreted as a quantitative test. TS Panel A 0 TS Panel B 0 TS Negative Control Passed TS Positive Control Passed For additional information, please refer to http://education.Nativis.Yoolink/faq/FVO163 (This link is being provided for informational/ educational purposes only.) THIS TEST WAS PERFORMED AT: [facility]/[address] ESTER WELLER MD,PHD Hemoglobin A1c Reviewed date:07/06/2024 11:16:05 AM Interpretation:Abnormal Performing Lab:[facility], [address] [place] [phone] Notes/Report: Hemoglobin A1c % 11.6 <6.0 % Hemoglobin A1C Reference Range Adults: 4.8 - 6.0 % Non diabetic: < 6.0 % Goal: < 7.0 % Additional Action Suggested: > 8.0 % Note: Hemoglobin A1c results are invalid for patients with abnormal amounts of HbF. Blood transfusions may impact the HbA1c concentration in the patient sample. Estimated Average Glucose 286 eAG = Estimated average glucose which is %A1C expressed as average glucose, using the formula of the E0C-Mavagzs Average Glucose study (ADAG), Diabetes Care, Vol.31,#8, Mar. 2007 Complete Blood Count Auto Di ff Reviewed date:07/06/2024 11:50:41 AM Interpretation:Normal Performing Lab:[facility], [address] [place] [phone] Notes/Report: White Blood Count 7.1 4.8-10.8 X10*3/uL Red Blood Count 5.64 4.60-5.80 X10*6/uL Hemoglobin 15.7 14.0-18.0 g/dl Hematocrit 44.1 42.0-52.0 % Mean Corpuscular Volume 78.2 80.0-98.0 fL Mean Corpuscular Hemoglobin 27.8 27.0-33.0 pg Mean Corpuscular HGB Conc 35.6 31.0-36.0 g/dl Red Cell Distribution Width 13.2 11.0-16.0 % Platelet Count 215 160-400 X10*3/uL Mean Platelet Volume 10.8 9.4-12.4 fL Neutrophils Percent Auto 70.7 45-73 % Imm Gran Pct Auto 0.3 0.0-0.4 % Lymphocytes Percent Auto 22.1 20-40 % Monocytes Percent Auto 4.6 2-11 % Eosinophils Percent Auto 1.0 0-4 % Basophils Percent Auto 1.3 0-2 % NRBC Pct Auto 0.0 0.0-0.2 /100WBC Neutrophils Absolute Auto 5.0 2.0-8.3 x10*3/u L Imm Gran Abs Auto 0.02 0.00-0.03 X10*3/uL Lymphocytes Absolute Auto 1.6 1.2-4.9 X10*3/u L Monocytes Absolute Auto 0.3 0.1-1.2 X10*3/uL Eosinophils Absolute Auto 0.1 0.0-0.4 X10*3/u L Basophils Absolute Auto 0.1 0.0-0.2 X10*3/uL NRBC Abs Auto 0.000 0.0-0.012 X10*3/uL White Blood Count 7.1 4.8-10.8 X10*3/uL Red Blood Count 5.64 4.60-5.80 X10*6/uL Hemoglobin 15.7 14.0-18.0 g/dl Hematocrit 44.1 42.0-52.0 % Mean Corpuscular Volume 78.2 80.0-98.0 fL Mean Corpuscular Hemoglobin 27.8 27.0-33.0 pg Mean Corpuscular HGB Conc 35.6 31.0-36.0 g/dl Red Cell Distribution Width 13.2 11.0-16.0 % Platelet Count 215 160-400 X10*3/uL Mean Platelet Volume 10.8 9.4-12.4 fL Neutrophils Percent Auto 70.7 45-73 % Imm Gran Pct Auto 0.3 0.0-0.4 % Lymphocytes Percent Auto 22.1 20-40 % Monocytes Percent Auto 4.6 2-11 % Eosinophils Percent Auto 1.0 0-4 % Basophils Percent Auto 1.3 0-2 % NRBC Pct Auto 0.0 0.0-0.2 /100WBC Neutrophils Absolute Auto 5.0 2.0-8.3 x10*3/u L Imm Gran Abs Auto 0.02 0.00-0.03 X10*3/uL Lymphocytes Absolute Auto 1.6 1.2-4.9 X10*3/u L Monocytes Absolute Auto 0.3 0.1-1.2 X10*3/uL Eosinophils Absolute Auto 0.1 0.0-0.4 X10*3/u L Basophils Absolute Auto 0.1 0.0-0.2 X10*3/uL NRBC Abs Auto 0.000 0.0-0.012 X10*3/uL Cancelled Urine Reviewed date:07/07/2024 03:18:34 PM Interpretation:Cancelled Performing Lab:[facility], [address] [place] [phone] Notes/Report: Cancelled Urine SEE NOTE Comprehensive [place]. Panel Fa st Reviewed date:07/07/2024 07:55:06 PM Interpretation:Abnormal Performing Lab:[facility], [address] [place] [phone] Notes/Report: Sodium 140 135-145 mmol/L Potassium 3.6 3.3-5.1 mmol/L Chloride 102 96-108 mmol/L Carbon Dioxide 24 22-29 mmol/L Anion Gap 18 12-20 Blood Urea Nitrogen 13 9-16 mg/dL Creatinine 0.87 0.5-1.4 mg/dL Estimated Glomerular Filt Rate > 60 NOTE: For -[place] individuals, multiply the result by 1.210. Chronic Kidney Disease: Estimated GFR < 60 mL/min/1.73m2 Severe Kidney Disease: Estimated GFR < 15 mL/min/1.73m2 Glucose Fasting 289 60-99 mg/dL A fasting glucose of 126 mg/dl or greater on more than one occasion is considered diagnostic of diabetes. Calcium 9.7 8.4-10.2 mg/dL Bilirubin Total 0.6 0.0-1.0 mg/dL Aspartate Amino Transferase 34 5-37 U/L Alanine Aminotransferase 29 0-40 U/L Total Protein 6.9 6.5-8.0 g/dL Albumin Level 4.2 3.5-5.0 g/dL Alkaline Phosphatase 109 39-117 U/L Lipid Panel Reviewed date:07/07/2024 07:54:47 PM Interpretation:Abnormal Performing Lab:[facility], [address] [place] [phone] Notes/Report: Triglycerides 483 <150 mg/dL Desirable Triglyceride: less than 150 mg/dL Borderline High Triglyceride 150-199 mg/dL High Triglyceride: 200-499 mg/dL Very High Triglyceride: greater than or equal to 5OO mg/dL Cholesterol 175 <200 mg/dL Desirable Cholesterol: less than 200 mg/dL Borderline High Cholesterol: 200-239 mg/dL High Cholesterol: greater than 239 mg/dL LDL Cholesterol Calculated TNP <100 mg/dL Unable to calculate the LDL. The formula of Friedwald Conway, and Sabrina is only valid if the triglycerides are less than 400 mg/dl. HDL Cholesterol 27 >40 mg/dL Desirable HDL: greater than 40 mg/dL Note: This HDL assay may give artificially low results in patients with liver disease. Vitamin D 25-OH Total Reviewed date:07/06/2024 11:50:41 AM Interpretation:Abnormal Performing Lab:[facility], [address] [place] [phone] Notes/Report: Vitamin D 25-OH Total 28.2 >30 ng/mL Health Based Reference Values* < 20 ng/mL Deficient 20-30 ng/mL Insufficient > 30 ng/mL Sufficient *Yrn ALVAREZ. N Engl J Med. 2007;357:266-280 Care must be taken in interpreting Vitamin D results from different laboratories and methodologies. Published data demonstrated that results from patients undergoing hemodialysis may show a negative bias when tested with various automated 25-OH vitamin D assays when compared to LC-MS/MS. When testing samples from patients whose predominant form of Vitamin D is Vitamin D2, such as patients receiving Vitamin D2 supplementation, results that are subtherapeutic should be confirmed with another method such as LC-MS/MS. Thyroid Stimulating Hormone Reviewed date:07/06/2024 11:50:41 AM Interpretation:Normal Performing Lab:[facility], [address] [place] [phone] Notes/Report: Thyroid Stimulating Hormone 1.24 0.32-4.0 uIU/ mL TSH 3rd Generation ([facility]) SLIDE REVIEW Reviewed date:07/06/2024 11:50:41 AM Interpretation:Verified Performing Lab:[facility], [address] [place] [phone] Notes/Report: SLIDE REVIEW VERIFIED REASON FOR REFERRAL No Information MEDICATIONS Medication SIG (Take, Route, Frequency, Duration) Notes Start Date End Date Status Lisinopril-hydroCHLOROthiaz lashawn 10-12.5 MG 1 tablet Orally Once a day 07/31/2023 Active metFORMIN HCl 500 MG 2 tablets with a me al Orally Twice a day for 30 day(s) 07/07/2024 Active Atorvastatin Calcium 20 MG 1 tablet Oral ly Once a day for 90 days 07/07/2024 Active Vitamin D3 50 MCG (2000 UT) 1 capsule Or ally Once a day for 90 days Active IMMUNIZATIONS Vaccine Route Administration Date Status Comme nts Influenza Quad IM Intramuscular 07/07/2020 Administered COVID-19 Pfizer BioNTech Unknown 12/19/2020 Administere d COVID-19 Pfizer BioNTech Unknown 01/09/2021 Administere d COVID-19 Moderna Vaccine Unknown 08/15/2021 Administere d Influenza Quad Unknown 08/15/2021 Administered TDaP Unknown 01/14/2014 Administered Influenza Quad IM Intramuscular 05/11/2022 Administered Influenza Quad Unknown 06/29/2023 Administered SOCIAL HISTORY Tobacco Use: Social History Observation Description Date Details (start date - stop date) Never Smoker NA - NA Sex Assigned At : Social History Observation Description Sex Assigned At Unknown Tobacco Use/Smoking Question Answer Notes Patient is a nonsmoker Additional Findings: Tobacco Non-User Cu rrent non-smoker, currently using no form of tobacco Alcohol Screen Question Answer Notes Did you have a drink contain ing alcohol in the past year? Yes How often did you have a dri nk containing alcohol in the past year? 2 to 4 times a month (2 points) How many drinks did you have on a typical day when you were drinking in the past year? 1 or 2 drinks (0 point) How often did you have 6 or more drinks on one occasion in the past year? Never (0 point) Points 2 Interpretation Negative PROBLEMS Problem Type ICD Code Onset Dates Problem Status W/U Status Risk SNOMED Code Notes Problem Obstructive sleep apnea (G47.33) Active confirmed 83637545 Problem Non morbid obesity due to excess calories (E66.09) Active confirmed 964425926 Problem Attention deficit hyperactivity disorder (ADHD), predominantly inattentive type (F90.0) Active confirmed 72752164 Problem Vitamin D deficiency (E55.9) Active confirmed 89812952 Problem Morbid (severe) obesity due to excess calories (E66.01) Active confirmed 446000365 Problem Erectile dysfunction, unspecified erectile dysfunction type (N52.9) Active confirmed 283559710 Problem Primary hypertension (I10) Active confirmed 59142907 Problem Type 2 diabetes mellitus without complication, without long-term current use of insulin (E11.9) Active confirmed 603202938 VITAL SIGNS Height 69.50 in 07/01/2024 Weight 270 lbs 07/01/2024 BMI 39.30 kg/m2 07/01/2024 Encounters Encounter Location Date Provider Diagnosis Jose Rodriguez DO, [facility] [address], [place] [id number] 11/15/2023 Jose Rodriguez DO, [address] [id number] 10/02/2024 Jose Flemingman Jose Rodriguez DO, [address] [id number] 04/03/2024 Jose Rodriguez Tuberculosis screening Z11.1 Jose Rodriguez DO, [address] [id number] 06/28/2024 Jose Rodriguez Primary hypertension I10 Jose Rodriguez DO, [address] [id number] 07/07/2024 Jose Rodriguez Type 2 diabetes mellitus without complication, without long-term current use of insulin E11.9 Jose Rodriguez DO, [address] [id number] 07/30/2024 Jose Rodriguez Jose Rodriguez DO, [address] [id number] 07/01/2024 Jose Rodriguez Primary hypertension I10 ; Vitamin D deficiency E55.9 and Weight loss R63.4 Jose Rodriguez DO, [address] [id number] 11/14/2023 Jose Rodriguez ASSESSMENTS Encounter Date Diagnosis Assessment Notes Treatment Notes Treatment Clinical Notes 04/03/2024 Tuberculosis screening (ICD-10 - Z11.1) 06/28/2024 Primary hypertension (ICD-10 - I10) 07/07/2024 Type 2 diabetes mellitus without complication, without long-term current use of insulin (ICD-10 - E11.9) 07/01/2024 Vitamin D deficiency (ICD-10 - E55.9) 07/01/2024 Primary hypertension (ICD-10 - I10) 07/01/2024 Weight loss (ICD-10 - R63.4) I will reach out to Ish after I review his lab results PLAN OF TREATMENT Pending Test Test Name Order Date LIPOPROTEIN FRACTIONATION (LIPID PANEL) 07/07/2024 PROFILE, FASTING 07/07/2024 Urinalysis and Microscopic 07/07/2024 Urinalysis and Microscopic 07/01/2024 Microalbumin, Random 07/07/2024 Microalbumin, Random 07/01/2024 Hemoglobin A1c 07/07/2024 Insurance Providers Payer Name Payer Address Payer Phone Subscriber Number Group Number Insured Name Patient Relationship to Insured Coverage Start Date Coverage End Date KALYN [address] LISSA HULL [id number] [phone] [id number] Greg Bernardo Self - patient is the insured MEDICAL (GENERAL) HISTORY Medical History History ICD Code attention deficit hyperactivity disorder obesity vitamin D deficiency Obstructive sleep apnea G47.33 Primary hypertension I10 Surgical History Surgery Date(Month/Year) hypospadius repair wisdom teeth extraction
--- OUTSIDE RECORDS SUMMARY | 2024-10-16 16:17 | XMS_ITS ---
Author Organization Jose Rodriguez DO, FACP Address [address] [place], [place] [id number] Care Team Providers Care Highway Safety Engineer Name Role Phone Jose Rodriguez Primary Care Provider [phone] REASON FOR VISIT 3 month f/u Encounters Encounter Location Date Provider Diagnosis Jose Rodriguez DO, FACP [address] [place] [id number] 10/02/2024 Jose Rodriguez PLAN OF TREATMENT No Information
--- OUTSIDE RECORDS SUMMARY | 2024-10-16 16:17 | XMS_ITS ---
Author Organization Jose Rodriguez DO, FACP Address [address] [place], [place] [id number] Care Team Providers Care Swimming Pool Plasterer Helper Name Role Phone Jose Rodriguez Primary Care Provider [phone] REASON FOR VISIT Refills MEDICATIONS Medication SIG (Take, Route, Frequency, Duration) Notes Start Date End Date Status Atorvastatin Calcium 20 MG 1 tablet Oral ly Once a day for 90 days 07/07/2024 Active Encounters Encounter Location Date Provider Diagnosis Jose Rodriguez DO, [facility] [address] [place] [id number] 07/30/2024 Jose Rodriguez PLAN OF TREATMENT Medication Medication Name Sig Start Date Stop Date Notes Atorvastatin Calcium 20 MG 1 tablet Oral ly Once a day for 90 days 07/07/2024
--- OUTSIDE RECORDS SUMMARY | 2024-10-16 16:17 | XMS_ITS ---
Author Organization Jose Rodriguez DO, [facility] Address [address] [place], [place] [id number] Care Team Providers Care Ramp Attendant Name Role Phone JenniferJose ashley Primary Care Provider REASON FOR VISIT message MEDICATIONS Medication SIG (Take, Route, Frequency, Duration) Notes Start Date End Date Status Atorvastatin Calcium 20 MG 1 tablet Oral ly Once a day for 30 days 07/07/2024 Active metFORMIN HCl 500 MG 2 tablets with a me al Orally Twice a day for 30 day(s) 07/07/2024 Active PROBLEMS Problem Type ICD Code Onset Dates Problem Status W/U Status Risk SNOMED Code Notes Problem Type 2 diabetes mellitus without complication, without long-term current use of insulin (E11.9) Active confirmed [id number] Encounters Encounter Location Date Provider Diagnosis Jose Rodriguez DO, [address] [id number] 07/07/2024 Jose Rodriguez Type 2 diabetes mellitus without complication, without long-term current use of insulin E11.9 ASSESSMENTS Encounter Date Diagnosis Assessment Notes Treatment Notes Treatment Clinical Notes 07/07/2024 Type 2 diabetes mellitus without complication, without long-term current use of insulin (ICD-10 - E11.9) PLAN OF TREATMENT Medication Medication Name Sig Start Date Stop Date Notes Atorvastatin Calcium 20 MG 1 tablet Oral ly Once a day for 30 days 07/07/2024 metFORMIN HCl 500 MG 2 tablets with a me al Orally Twice a day for 30 day(s) 07/07/2024 Pending Test Test Name Order Date LIPOPROTEIN FRACTIONATION (LIPID PANEL) 07/07/2024 PROFILE, FASTING 07/07/2024 Urinalysis and Microscopic 07/07/2024 Microalbumin, Random 07/07/2024 Hemoglobin A1c 07/07/2024
[2024-10-16 16:25] VITALS: BP 180/120; PULSE 82; TEMP 36.3; O2SAT 98; BMI 42.2
== END 2024-10-16 16:48 | disposition home or self-care (01) ==
LOC: HO.HMCSH 16:15
PROVIDERS: PCP Internal Medicine; Visit Provider Physician Assistant Medical
DX: E11.9 Type 2 diabetes mellitus without complications (principal); G47.33 Obstructive sleep apnea (adult) (pediatric); E66.01 Morbid (severe) obesity due to excess calories; Z68.41 Body mass index [BMI] 40.0-44.9, adult; E55.9 Vitamin D deficiency, unspecified; F90.9 Attention-deficit hyperactivity disorder, unspecified type; I10 Essential (primary) hypertension

== ENCOUNTER → 2024-10-16 16:15 | Outpatient (BNVA) | payer OTHER, SELFPAY | PROVIDERS: PCP Internal Medicine; Visit Provider Physician Assistant Medical ==

== ENCOUNTER 2024-10-17 18:35 | Emergency (ER) | payer OTHER, SELFPAY ==
[2024-10-17 19:23] VITALS: BP 191/98; PULSE 73; RESP 20; TEMP 36.5; O2SAT 98; BMI 41.6
--- NOTE | 2024-10-17 19:23 | ED_ITS ---
HPI - General Adult General Chief complaint: General Medical Stated complaint: bp 192/111, headache, nausea Time Seen by Provider: 10/18/24 02:23 Source: patient Mode of arrival: ambulatory Limitations: no limitations History of Present Illness ED Provider: Dr. Eagle Carrillo HPI narrative: 39-year-old male with history of diabetes mellitus, hypertension, FRANKIE, ADHD who presents emergency department for evaluation increased blood pressure and headache/nausea. Patient states that he has the physician learning support assistant at his PCP practice yesterday and they doubled his lisinopril /hydrochlorothiazide and also started him on amlodipine 2.5 mg daily since he had an elevated blood pressure at the visit. Patient states that he has been treated for hypertension since June 2024. he states that yesterday he had stomach pains and he felt hot. He states that the symptoms started around 14:30 hours then shortly after he developed headache. Patient took his blood pressure was 192/111. Patient points to his frontal area when asked to describe the headache. Describes as a pressure-like sensation associated with nausea but no vomiting. He denied change in his vision, numbness, weakness, change in his speech. He also denied chest pain, shortness of breath, dyspnea on exertion, fever, chills, myalgias or fatigue. Patient states that is rare for him to get a headache. He did not take any medications for his headache. Related Data Home Medications ?Medication ?Instructions ?Recorded ?Confirmed cholecalciferol (vitamin D3) 50 50 mcg PO DAILY 05/28/20 10/16/24 mcg (2,000 unit) capsule atorvastatin 20 mg tablet 20 mg PO BEDTIME 10/01/24 10/16/24 Previous Rx's ?Medication ?Instructions ?Recorded metformin 500 mg tablet 1,000 mg (2 x 500 mg) PO BID 09/03/24 diabetes 90 days #360 tabs amlodipine 2.5 mg tablet 2.5 mg PO DAILY #90 tabs 10/16/24 flash glucose scanning reader #1 ea 10/16/24 (FreeStyle Paolo 14 Day [place]) flash glucose sensor (FreeStyle #1 ea 10/16/24 Paolo 14 Day Sensor kit) lisinopril 20 1 tab PO DAILY #90 tabs 10/16/24 mg-hydrochlorothiazide 25 mg tablet Allergies Allergy/AdvReac Type Severity Reaction Status Date / Time No Known Allergies Allergy Verified 10/17/24 19:24 [No Known Allergies*] Review of Systems 2 Review of Systems: Yes all other systems are reviewed and are negative [facility] Past Medical History [facility] Narrative: Social history: He denies tobacco use. He states he rarely drinks alcohol. He denies drug use. Medical History (Updated 10/19/24 @ 00:00 by Ramila Toro) Morbid obesity with BMI of 40.0-44.9, adult Colon cancer screening Diabetes type 2 FRANKIE (obstructive sleep apnea) Hypospadias Vitamin D deficiency ADHD Abnormal EKG Obesity FRANKIE (obstructive sleep apnea) Surgical History H/O wisdom tooth extraction Social History Social History Household Members: Significant Other Housing: Apartment Do you presently have visiting nurse or other home services: No Alcohol intake: never Patient Tobacco Use Status: Never used Tobacco Advance Directives: No service: No Current occupational status: employed Physical Exam ED Vital Signs: Vital Signs - 24 hr 10/17/24 19:23 10/18/24 00:42 Temperature 97.7 F 97.6 F Pulse Rate 73 80 Respiratory Rate 20 20 Blood Pressure 191/98 H 158/98 H Pulse Oximetry 98 98 Oxygen Delivery Method Room Air Room Air BMI result Body Mass Index 41.6 Vital signs revealed an elevated blood pressure of 191/98 otherwise unremarkable. Exam: General: Awake, alert in no distress, weight 131.5 kg, elevated BMI 41.6 kilograms/meters clear. Head: Normocephalic, atraumatic EENT: PERRL, Lids normal, sclera normal, conjunctiva normal, nose normal , ears normal, throat without erythema or exudates Neck: Supple, no adenopathy Lung: breath sounds symmetric, no wheezing, rales or rhonchi Chest: symmetric movement, nontender Heart: regular rate and rhythm, normal S1, S2 no murmurs or rubs Abdomen: soft, non-tender, nondistended, normal bowel sounds Back: no vertebral tenderness, no CVAT Extremities: no deformities, moves all extremities symmetrically Neuro: Awake, alert, oriented, normal speech, cranial nerves intact, moves all extremities symmetrically Psych: Pleasant, cooperative Course Course Course Narrative: This is a rapid medical exam performed by Aggie Santo NP: Additional HPI, ROS, PE not included below will be deferred to primary provider. Patient is a 39-year-old male with history of T2DM, HTN, ADHD, FRANKIE, obesity presenting with complaint of headache and nausea. Checked BP at home and it was high. Saw PCP yesterday who adjusted his BP meds, took meds this am as prescribed. Med changes-doubled lisinopril/HCTZ, added amlodipine. Plan: EKG, viral swabs, labs Medical Decision Making Medical Decision Making MDM Narrative: 39-year-old male with history of diabetes mellitus, hypertension, FRANKIE, ADHD who presents emergency department for evaluation increased blood pressure and headache/nausea. Patient has been treated for elevated blood pressures since June 2024, saw his PCP yesterday and his lisinopril/ hydrochlorothiazide was doubled was also started on amlodipine 2.5 mg daily. Patient developed stomach pain, headache associated with nausea but no other concerning symptoms. Initial vital signs revealed an elevated blood pressure of 191/98. Physical examination was unremarkable. Differential diagnosis: Includes but is not limited to Stroke, intracranial bleed, headache syndrome, viral syndrome, myocardial infarction, myocardial ischemia, liver disease, kidney disease, electrolyte abnormalities, anemia Course: My independent interpretation patient's laboratory evaluation is as follows: WBC elevated 12,400. serum bicarb low 31. Glucose elevated 145, ALT elevated 43. High sensitive troponin I was below detectable limits. COVID-19, influenza and RSV were negative. Twelve EKG was unremarkable. The patient's presentation and laboratory evaluation is consistent with essential hypertension and a headache, the patient does not have any evidence for hypertensive crisis, stroke, kidney disease, liver disease or myocardial injury. I did discuss the management hypertension with the patient and the fact that it often takes 2-6 weeks for a change in the medications to affect your blood pressure. Patient was advised to check his blood pressures on Mondays, Wednesdays and Fridays for 2 weeks and discuss these readings with his doctor. He was advised to continue taking his medications as prescribed and return to the emergency department if his symptoms got worse with the any symptoms of concerning to him. Admission/Observation Consideration of admission/observation: Escalation of care including admission/observation considered ( yes) Lab Data [facility] Lab Attestation statement: I reviewed the patient's lab results. 10/17/24 19:34 10/17/24 19:33 Labs: Lab Results 10/17/24 10/17/24 Range/Units 19:33 19:34 WBC 12.9 H (4.8-10.8) X10*3/uL RBC 5.31 (4.60-5.80) X10*6/uL Hgb 14.7 (14.0-18.0) g/dl Hct 41.5 L (42.0-52.0) % MCV 78.2 L (80.0-98.0) fL MCH 27.7 (27.0-33.0) pg MCHC 35.4 (31.0-36.0) g/dl RDW 13.5 (11.0-16.0) % Plt Count 247 (160-400) X10*3/uL MPV 9.7 (9.4-12.4) fL Immature Gran % (Auto) 0.3 (0.0-0.4) % Neut % (Auto) 82.2 H (45-73) % Lymph % (Auto) 12.9 L (20-40) % Henry % (Auto) 3.3 (2-11) % Eos % (Auto) 0.4 (0-4) % Baso % (Auto) 0.9 (0-2) % Lymph # (Auto) 1.7 (1.2-4.9) X10*3/uL Henry # (Auto) 0.4 (0.1-1.2) X10*3/uL Eos # (Auto) 0.1 (0.0-0.4) X10*3/uL Baso # (Auto) 0.1 (0.0-0.2) X10*3/uL Abs Immat Gran (auto) 0.04 H (0.00-0.03) X10*3/uL Absolute Neuts (auto) 10.6 H (2.0-8.3) x10*3/uL Absolute Nucleated RBC 0.000 (0.0-0.012) X10*3/uL Nucleated RBC % (auto) 0.0 (0.0-0.2) /100WBC PT 12.0 (10.9-12.4) SEC INR 1.0 (0.9-1.1) Sodium 141 (135-145) mmol/L Potassium 3.6 (3.3-5.1) mmol/L Chloride 100 (96-108) mmol/L Carbon Dioxide 31 H (22-29) mmol/L Anion Gap 14 (12-20) BUN 16 (9-16) mg/dL Creatinine 0.73 (0.5-1.4) mg/dL Estim Creat Clear Calc 183.4 Estimated GFR > 60 Random Glucose 145 H (60-115) mg/dL Calcium 10.5 H D (8.4-10.2) mg/dL Total Bilirubin 0.7 (0.0-1.0) mg/dL AST 28 (5-37) U/L ALT 43 H (0-40) U/L Alkaline Phosphatase 78 (39-117) U/L Troponin I High Sens < 2.7 D (<3.5-35.0) ng/L Total Protein 7.7 (6.5-8.0) g/dL Albumin 4.8 (3.5-5.0) g/dL Influenza Type A (PCR) NEGATIVE (Negative) Influenza Type B (PCR) NEGATIVE (Negative) RSV RNA Qual (PCR) NEGATIVE (Negative) SARS-CoV-2 RNA (RT-PCR) NEGATIVE (Negative) Independent Interpretation I performed an independent interpretation of an: EKG Interpretation: My independent interpretation patient's 12 EKG done on 10/17/2024 at 19:30 hours is as follows: Normal sinus rhythm rate of 70, normal W[place] interval, prolonged QRS duration of 112 milliseconds, normal QTC interval, no ST segment elevation, no ST segment depression, Q-wave in lead 3, no PVCs or PACs, compared to EKG dated 07/17/2023 no significant change. Independent Historian Clinical information obtained from an independent historian. History obtained from or confirmed by: Spouse Chronic Conditions Patient?s care impacted by: Hypertension Discharge Plan Discharge Clinical Impression: Headache, Essential hypertension Patient Disposition: Home, Self-Care Additional Instructions: You had a complete blood count, comprehensive metabolic panel, high sensitive troponin I, COVID-19, influenza and RSV test today. There were no significant abnormalities in these tests which is reassuring. Your 12 EKG was unchanged from your previous 1 which is also reassuring. At this time I do not think that your headache was caused by your high blood pressure or a stroke. Also based on your blood work your kidney and liver functions are normal. High blood pressure instructions: The reason to check your blood pressure at home is to give your doctor an idea of what your blood pressure does when you are not in the doctor's office. Take your blood pressure in the mornings, Mondays , Wednesdays and Fridays and then write down these readings to discuss them with your doctor at your next visit. If your doctor thinks that your blood pressures are too high then they will either increase your high blood pressure medication or start you on a another high blood pressure medication. If your doctor changes your blood pressure medications it will take anywhere from 2-6 week before these medications work to reduce your blood pressure. Follow-up with your doctor to discuss your blood pressure readings in 2 weeks Please return to the emergency department if your symptoms get worse or if you develop any new symptoms that are concerning to you. Consider getting a wrist blood pressure cuff or a larger blood pressure cuff that fits the size of your arm. For headaches: Take ibuprofen 200 mg pills, 2 pills every 6 hours as needed for pain Or. Take Tylenol (acetaminophen) 500 mg pills, 2 pills every 6 hours as needed for pain or fever. Please return to the emergency department if your symptoms get worse or if you develop any symptoms that are concerning to you. Prescriptions: No Action metformin 500 mg tablet 1,000 mg PO BID 90 Days Qty: 360 1RF atorvastatin 20 mg tablet 20 mg PO BEDTIME cholecalciferol (vitamin D3) 50 mcg (2,000 unit) capsule 50 mcg PO DAILY lisinopril-hydrochlorothiazide 20-25 mg tablet 1 tab PO DAILY Qty: 90 0RF amlodipine 2.5 mg tablet 2.5 mg PO DAILY Qty: 90 0RF (DME) FreeStyle Paolo 14 Day [place] Misc See Rx Instructions .ROUTE .MEDSUPPLY Qty: 1 0RF Rx Instructions: As directed (DME) FreeStyle Paolo 14 Day Sensor Kit See Rx Instructions .Route Qty: 1 0RF Rx Instructions: As directed Interventions: ED Discharge Assessment Last Done: 10/18/24 03:12 Discharge Date/Time: 10/18/24 03:13 Print Language: Bol[place]ian
--- NOTE | 2024-10-17 19:25 | ECG_ITS ---
Test Reason : HYPERTENSION Blood Pressure : */* mmHG Vent. Rate : 70 BPM Atrial Rate : 70 BPM P-R Int : 166 ms QRS Dur : 112 ms QT Int : 426 ms P-R-T Axes : 26 -32 150 degrees QTcB Int : 460 ms Normal sinus rhythm Possible Left atrial enlargement Left axis deviation Minimal voltage criteria for LVH, may be normal variant ( Allan product ) Inferior infarct , age undetermined ST & T wave abnormality, consider lateral ischemia Abnormal ECG When compared with ECG of 17-Jul-2023 10:42, No significant change was found Referred By: Coleen Santo Electronically Signed By: KAREN CHURCHILL
[2024-10-17 19:45] LABS: MANUAL DIFF FLAG NO
[2024-10-17 19:46] LABS: Basophils Absolute Auto 0.1 X10*3/uL (0.0-0.2); Basophils Percent Auto 0.9 % (0-2); Eosinophils Absolute Auto 0.1 X10*3/uL (0.0-0.4); Eosinophils Percent Auto 0.4 % (0-4); Hematocrit 41.5 % (42.0-52.0); Hemoglobin 14.7 g/dl (14.0-18.0); Imm Gran Abs Auto 0.04 X10*3/uL (0.00-0.03); Imm Gran Pct Auto 0.3 % (0.0-0.4); Lymphocytes Absolute Auto 1.7 X10*3/uL (1.2-4.9); Lymphocytes Percent Auto 12.9 % (20-40); Mean Corpuscular HGB Conc 35.4 g/dl (31.0-36.0); Mean Corpuscular Hemoglobin 27.7 pg (27.0-33.0); Mean Corpuscular Volume 78.2 fL (80.0-98.0); Mean Platelet Volume 9.7 fL (9.4-12.4); Monocytes Absolute Auto 0.4 X10*3/uL (0.1-1.2); Monocytes Percent Auto 3.3 % (2-11); Neutrophils Absolute Auto 10.6 x10*3/uL (2.0-8.3); Neutrophils Percent Auto 82.2 % (45-73); Platelet Count 247 X10*3/uL (160-400); Red Blood Count 5.31 X10*6/uL (4.60-5.80); Red Cell Distribution Width 13.5 % (11.0-16.0); White Blood Count 12.9 X10*3/uL (4.8-10.8)
[2024-10-17 20:03] LABS: Alanine Aminotransferase 43 U/L (0-40); Albumin Level 4.8 g/dL (3.5-5.0); Alkaline Phosphatase 78 U/L (39-117); Anion Gap 14 (12-20); Aspartate Amino Transferase 28 U/L (5-37); Bilirubin Total 0.7 mg/dL (0.0-1.0); Blood Urea Nitrogen 16 mg/dL (9-16); Calcium 10.5 mg/dL (8.4-10.2); Carbon Dioxide 31 mmol/L (22-29); Chloride 100 mmol/L (96-108); Creatinine Clr Calc Pharmacy 183.4; Estimated Glomerular Filt Rate > 60; Glucose Random 145 mg/dL (60-115); Potassium 3.6 mmol/L (3.3-5.1); Sodium 141 mmol/L (135-145); Total Protein 7.7 g/dL (6.5-8.0)
[2024-10-17 20:14] LABS: Troponin-I High Sensitivity < 2.7 ng/L (<3.5-35.0)
[2024-10-17 20:24] LABS: Influenza A PCR NEGATIVE (Negative); Influenza B PCR NEGATIVE (Negative); Resp Syncy Virus RNA Qual PCR NEGATIVE (Negative); SARS COV2 PCR INHOUSE NEGATIVE (Negative)
[2024-10-18 00:42] VITALS: BP 158/98; PULSE 80; RESP 20; TEMP 36.4; O2SAT 98
[2024-10-18 03:12] VITALS: BP 152/89; PULSE 86; RESP 16; TEMP -17.7; TEMP 0; O2SAT 98
== END 2024-10-18 03:13 | disposition home or self-care (01) ==
PROVIDERS: Registered Nurse Emergency; Emergency Provider Emergency Medicine Emergency Medical Services
DX: R51.9 Headache, unspecified (principal); I10 Essential (primary) hypertension; R11.2 Nausea with vomiting, unspecified; E11.9 Type 2 diabetes mellitus without complications; R94.31 Abnormal electrocardiogram [ECG] [EKG]; Z79.84 Long term (current) use of oral hypoglycemic drugs; Z79.899 Other long term (current) drug therapy; Z51.81 Encounter for therapeutic drug level monitoring; Z03.818 Encounter for observation for suspected exposure to other biological agents ruled out
CPT/HCPCS: 0241U; 36415; 80053; 84484; 85025; 85610; 93005; 99283

== ENCOUNTER → 2024-10-17 19:25 | Outpatient (BNV) | payer OTHER, SELFPAY | PROVIDERS: Emergency Provider Emergency Medicine Emergency Medical Services; Visit Provider Internal Medicine | DX: R94.31 Abnormal electrocardiogram [ECG] [EKG] (principal); I10 Essential (primary) hypertension | CPT/HCPCS: 93010 ==

== ENCOUNTER 2024-10-30 16:10 | Outpatient (AMB) | payer OTHER, SELFPAY ==
--- NOTE | 2024-10-30 16:10 | A.OFFPC_ITS ---
Vital Signs 10/30/24 16:16 Height 5 ft 9.25 in Weight 292 lb BMI 42.8 BP 220/150 H Blood Pressure Location Lt brachial Pulse 85 Pulse Source Pulse Oximeter Temp 97.2 F Pulse Oximetry (%) 98 Intake Visit Reasons: 2 week f/u Intake Note: no other issues Allergies No Known Allergies [No Known Allergies*] Allergy (Verified 10/30/24 17:04) Medication List - Last Reconciled 10/30/24 by Arabella Jackson PA-C amlodipine 2.5 mg PO DAILY atorvastatin 20 mg PO BEDTIME cholecalciferol (vitamin D3) 50 mcg PO DAILY empagliflozin (Jardiance) 25 mg PO DAILY flash glucose scanning reader (CelergoStyle Paolo 14 Day [place]) As directed flash glucose sensor (CelergoStyle Paolo 14 Day Sensor kit) As directed hydralazine 10 mg PO BID lisinopril-hydrochlorothiazide 20-25 mg 1 tab PO DAILY metformin 1,000 mg (2 x 500 mg) PO BID 90 days [facility] Medical History Morbid obesity with BMI of 40.0-44.9, adult Colon cancer screening Diabetes type 2 FRANKIE (obstructive sleep apnea) Hypospadias Vitamin D deficiency ADHD Abnormal EKG Obesity FRANKIE (obstructive sleep apnea) Surgical History H/O wisdom tooth extraction Social History Household Members: Significant Other Housing: Apartment Do you presently have visiting nurse or other home services: No Alcohol intake: never Patient Tobacco Use Status: Never used Tobacco service: No Current occupational status: employed Physical exam (Primary Care) Vital Signs: Last Vital Signs Temp 97.2 F 10/30/24 16:16 Pulse 85 10/30/24 16:16 BP 220/150 H 10/30/24 16:16 Pulse Ox 98 10/30/24 16:16 Care Plan Goal for BP management: <130/80; it will be instructed to continue the combination of lisinopril/hydrochlorothiazide 20/25 mg daily, amlodipine 2.5 mg daily, will add hydralazine 10 mg b.i.d.. Patient will return in 1 month with blood pressure diary. BMI result Body Mass Index 42.8 BMI Assessment/Plan discussion: High BMI High, discussed plan: lifestyle, weight reduction, dietary, physical activity and alcohol moderation Tobacco/Smoking Status: Tobacco use Status Patient Tobacco Use Status Never used Tobacco 10/30/24 16:12 Coding Level of Care Code Est Pt Level 4 (57891) Complex EM visit Add On G2211 Diagnoses Diabetes type 2 E11.9 Essential hypertension I10 ADHD F90.9 Assessment & Plan Assessment & Plan (1) Diabetes type 2: Code(s): E11.9 - Type 2 diabetes mellitus without complications Category: Medical Plan: I placed the patient's freestyle Paolo in place for the patient. I educated the patient. Patient to continue metformin 1000 mg p.o. b.i.d.. We will add Jardiance 25 mg daily. Patient to have fasting blood work before his next appointment in 1 month. A1c level goal is less than 7.0. Currently last A1c in June of 2024 was 11.0. Condition is chronic and stable continue to monitor. (2) Essential hypertension: Code(s): I10 - Essential (primary) hypertension Category: Medical Plan: Blood pressure goal is less than 130/80. Patient to continue amlodipine 2.5 mg daily. Lisinopril-hydrochlorothiazide combo 20-25 mg. Patient will be started on hydralazine 10 mg b.i.d.. He return in 1 month for blood pressure check. (3) ADHD: Code(s): F90.9 - Attention-deficit hyperactivity disorder, unspecified type Category: Medical Plan: We considered Strattera although we are still trying to stabilize the patient's blood pressure therefore will hold off on this. Patient has psych consult in place. Condition is chronic and stable continue to monitor. Plan Plan Management of the patient's elevated blood pressure involves the addition of hydralazine 10 mg twice daily, to be used with the existing regimen of lisinopril-hydrochlorothiazide and amlodipine. For glycemic control in diabetes mellitus, Jardiance has been initiated, and continuous glucose monitoring will assist in guiding treatment efficacy and potential adjustments. ADHD discussions included the initiation of Strattera when blood pressure and diabetes management are stabilized. The focus remains on refining existing management strategies with close monitoring of home blood pressure and glucose logs until adequate control is achieved. Patient was informed and verbally consented to the use of an ambient scribe for clinic note documentation during this visit. Discussion Notes During the consultation, I detailed the current state of the patient?s hypertension and diabetes, addressing the ongoing refractory nature of the blood pressure and the elevated A1c levels in diabetes. We discussed the addition of hydralazine for hypertension and the potentiality of switching to or augmenting the current diabetes regimen with Jardiance, explaining actions, side effects, and expected outcomes. We also discussed pending initiation of Strattera for ADHD, highlighting that stabilization of cardiovascular metrics is paramount before proceeding. The patient was supportive of these actions, and consent was obtained after ensuring understanding of treatment risks and benefits. Continued monitoring was emphasized, with reassurance concerning emergency care if required, and arrangements for follow-up were established to reassess therapeutic responses. Medications: New hydralazine 10 mg PO BID 60 tabs 0RF empagliflozin (Jardiance) 25 mg PO DAILY 90 tabs 1RF Patient Instructions: Patient Instructions - Take hydralazine 10 mg twice a day as prescribed. - Start Jardiance as directed. - Monitor blood pressure and blood glucose regularly, using the provided equipment and application. - Contact us if there are issues with the continuous glucose monitoring device. - Be cautious of any headaches or nausea; seek emergency care if these symptoms worsen. - Await further contact regarding ADHD medication once we manage blood pressure and blood sugar levels effectively. - Attend follow-up appointments and communicate any complications or questions through the patient portal. Scribe Plan - Not visible on output: History of Present Illness The patient is a 39-year-old male presenting with the primary issues of poorly controlled hypertension and type 2 diabetes mellitus, alongside newly addressed ADHD. For hypertension, home monitored systolic pressures frequently measure above 180 mmHg, with recorded instances as high as 220/150 mmHg despite use of antihypertensives including amlodipine and the combination of lisinopril- hydrochlorothiazide. There is no reported edema and the patient has not complained of typical cardiac symptomatology such as exertional dyspnea or angina. Regarding diabetes management, the blood glucose control has been unsatisfactory, with a recorded hemoglobin A1c of 11%, supporting the need for escalation in therapy, possibly considering insulin, depending on glucose monitoring results from a newly placed continuous monitor system. Episodes of hyperglycemia have contributed to an ER visit due to associated symptoms like headaches and nausea. The patient's symptoms aligning with ADHD were discussed, considering pharmacological management with options like Strattera, although the final decision remained pending further evaluation and stabilization of blood pressure. 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 - Nutrition: Contact with a radio communication coordinator mentioned; specific dietary details or changes not extensively detailed beyond acknowledgment of the condition's dietary influence. - Stress: Notable occupational stress due to federal employment obligations and [id number] mandates. Review of Systems - Cardiovascular: Reports symptoms such as headaches and nausea following elevated blood pressure readings. - Endocrine: Reports difficulty managing blood glucose levels. - Psychiatric: Reports symptoms consistent with ADHD such as difficulty focusing. Physical Exam Appearance: Alert. Oriented X3. No acute distress. Head: Normal external exam. Normocephalic. Atraumatic. Eyes: Pupils are equal, round, and reactive to light. Extraocular movements intact. Conjunctiva and sclera normal. Eyelids normal. Ears: External auditory canal normal. Tympanic membranes normal. Throat: Pharynx normal. Uvula midline. Moist mucous membranes. Neck: Normal inspection. Neck supple. Full range of motion. No adenopathy. Thyroid Normal. No meningeal signs. No neck mass noted. Cardiovascular: Blood pressure is 220/150. Normal heart rate and rhythm. Heart sound normal. No murmurs noted. Pulses normal throughout. Respiratory: No respiratory distress. Painless inspiration. Breath sounds normal. No wheezes/rales/rhonchi noted. Chest nontender. No accessory muscle usage noted or decreased air movement noted. Abdomen: Soft and nontender. Bowel sounds normal in all 4 quadrants. No distention noted. No organomegaly noted. No visible injury noted. Back: No costovertebral angle tenderness. Full range of motion noted. Skin: Skin warm and dry. Normal skin color. Normal skin turgor. No rashes/lesions/lacerations noted. Extremities: No lower extremity edema. Extremities exhibit normal range of motion. Extremities nontender. Neuro: Oriented X 3. No motor deficit. No sensory deficit. Reflexes normal. Results - Labs: Hemoglobin A1c reported at 11%. Plan Management of the patient's elevated blood pressure involves the addition of hydralazine 10 mg twice daily, to be used with the existing regimen of lisinopril-hydrochlorothiazide and amlodipine. For glycemic control in diabetes mellitus, Jardiance has been initiated, and continuous glucose monitoring will assist in guiding treatment efficacy and potential adjustments. ADHD discussions included the initiation of Strattera when blood pressure and diabetes management are stabilized. The focus remains on refining existing management strategies with close monitoring of home blood pressure and glucose logs until adequate control is achieved. Patient was informed and verbally consented to the use of an ambient scribe for clinic note documentation during this visit. Discussion Notes During the consultation, I detailed the current state of the patient?s hypertension and diabetes, addressing the ongoing refractory nature of the blood pressure and the elevated A1c levels in diabetes. We discussed the addition of hydralazine for hypertension and the potentiality of switching to or augmenting the current diabetes regimen with Jardiance, explaining actions, side effects, and expected outcomes. We also discussed pending initiation of Strattera for ADHD, highlighting that stabilization of cardiovascular metrics is paramount before proceeding. The patient was supportive of these actions, and consent was obtained after ensuring understanding of treatment risks and benefits. Continued monitoring was emphasized, with reassurance concerning emergency care if required, and arrangements for follow-up were established to reassess therapeutic responses. Patient Instructions - Take hydralazine 10 mg twice a day as prescribed. - Start Jardiance as directed. - Monitor blood pressure and blood glucose regularly, using the provided equipment and application. - Contact us if there are issues with the continuous glucose monitoring device. - Be cautious of any headaches or nausea; seek emergency care if these symptoms worsen. - Await further contact regarding ADHD medication once we manage blood pressure and blood sugar levels effectively. - Attend follow-up appointments and communicate any complications or questions through the patient portal.
[2024-10-30 16:16] VITALS: BP 220/150; PULSE 85; TEMP 36.2; O2SAT 98; BMI 42.8
== END 2024-10-30 16:50 | disposition home or self-care (01) ==
LOC: HO.HMCSH 16:10
PROVIDERS: PCP Internal Medicine; Visit Provider Physician Assistant Medical
DX: E11.9 Type 2 diabetes mellitus without complications (principal); I10 Essential (primary) hypertension; F90.9 Attention-deficit hyperactivity disorder, unspecified type

== ENCOUNTER 2024-12-16 16:02 | Outpatient (AMB) | payer OTHER, SELFPAY ==
[2024-12-16 16:03] VITALS: BP 150/92; PULSE 80; RESP 16; TEMP 36.7; O2SAT 97; BMI 41.5
--- NOTE | 2024-12-16 16:03 | A.OFFPC_ITS ---
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 Accompanied by: Self / Same As Patient Allergies No Known Allergies [No Known Allergies*] Allergy (Verified 12/16/24 16:23) Medication List - Last Reconciled 12/16/24 by Arabella Jackson PA-C alcohol swabs (DropSafe Alcohol Prep Pads) 1 pad topical TIDWMEAL amlodipine 10 mg PO DAILY amoxicillin 875 mg PO BID atorvastatin 20 mg PO BEDTIME blood sugar diagnostic (FreeStyle Lite Strips) Assess blood glucose level at breakfast lunch and dinner blood-glucose meter (FreeStyle Lite Meter kit) Assess blood glucose level at breakfast lunch and dinner cholecalciferol (vitamin D3) 50 mcg PO DAILY empagliflozin (Jardiance) 25 mg PO DAILY hydralazine 10 mg PO BID lancets (2-In-1 Lancet Device) Assess blood glucose level at breakfast lunch and dinner lancets (FreeStyle Lancets) Please monitor glucose at breakfast lunch and dinner lancing device, vacuum-lancets Please assess glucose 3 times a day at breakfast lunch and dinner lisinopril-hydrochlorothiazide 20-25 mg 1 tab PO DAILY metformin 1,000 mg (2 x 500 mg) PO BID 90 days naproxen 500 mg PO BID naproxen 500 mg PO BID Tobacco use date assessed: 12/16/24 Dental Screening Dental Screen Date: 12/16/24 Did you have a dental visit in the last 12 months?: Yes Did you have a dental problem in the last 6 months where you did not have access to dental care?: No Was dental information given to patient?: Patient has dentist HPI follow up HPI Details The patient is a 39-year-old male presenting for follow-up focused on managing Type 2 Diabetes Mellitus and Essential Hypertension. Previous management included metformin and Jardiance for diabetes, with recent results showing significant improvement in A1c from 11.6% to 5.5%. He has been resistant to finger-prick blood glucose testing due to its discomfort. For hypertension, the patient has been on medication regimens that appear insufficient for adequate control, resulting in elevated blood pressure readings. Enhancements to his regimen are recommended to optimize hypertension management, given recent blood pressure levels. The patient reports cessation of headaches previously experienced in the morning, potentially indicating improved blood pressure control. Additionally, he is undergoing treatment for a painful dental abscess, contributing to elevated blood pressure. This abscess is planned to be addressed through a future root canal procedure. Social History - Exercise: Climbs stairs regularly, whi ch positively affects calf muscle tone. - Functional Status: Experiencing signif icant dental-related pain, limiting daily activities. - Diet: Dietary modifications evident wi th significant improvement in A1c. [facility] Medical History Morbid obesity with BMI of 40.0-44.9, adult Colon cancer screening Diabetes type 2 FRANKIE (obstructive sleep apnea) Hypospadias Vitamin D deficiency ADHD Abnormal EKG Obesity FRANKIE (obstructive sleep apnea) Surgical History H/O wisdom tooth extraction Family History Father Arthritis Mother Family history of thyroid problem Social History Household Members: Significant Other Housing: Apartment Do you presently have visiting nurse or other home services: No Alcohol intake: current Alcohol intake frequency: holidays/special occasions only Patient Tobacco Use Status: Never used Tobacco service: No Current occupational status: employed Cognitive needs: No Hearing needs: No Vision needs: Yes (rx glasses) Questionnaire PHQ-9 Over the last 2 weeks, how often have you been bothered by any of the following problems? 1. Little interest or pleasure in doing things: not at all 2. Feeling down, depressed, or hopeless: not at all 3. Trouble falling or staying asleep, or sleeping too much: not at all 4. Feeling tired or having little energy: not at all 5. Poor appetite or overeating: not at all 6. Feeling bad about yourself - or that you are a failure or have let yourself or your family down: not at all 7. Trouble concentrating on things, such as reading the newspaper or watching television: not at all 8. Moving or speaking so slowly that other people could have noticed. Or the opposite - being so fidgety or restless that you have been moving around a lot more than usual: not at all 9. Thoughts that you would be better off or of hurting yourself in some way: not at all Total score: 0 Depression Screening Interpretation: Negative Depression Screening Done: Yes 04304 - PHQ-9 Billing: Yes Source: Developed by Drs. Jose Kimble, Mireya Conrad, Ryan Zarco and colleagues, with an educational jose from [employer]. Thrive Questionnaire Date Thrive assessed: 12/16/24 I am a: Patient What is your living situation today?: I have a steady place to live Within the past 12 months, did the food you bought not last and you didn't have the money to get more?: Never true Within the past 12 months, did you worry whether your food would run out before you got money to buy more?: Never true Do you have trouble paying for medicines?: No Do you have trouble getting transportation to medical appointments?: No Do you have trouble paying your heating and electricity bill?: No Do you have trouble taking care of your child, family member or friend?: No Do you have trouble with day-to-day activities such as bathing, preparing meals, shopping, managing finances, etc.?: No Are you currently unemployed and looking for a job?: No Are you interested in more education?: No Please select the resources that you would like help with: None THRIVE Score: 0 AUDIT C Alcohol Use Questionnaire (AUDIT-C) 1. How often do you have a drink containing alcohol?: Monthly or less 2. How many drinks containing alcohol do you have on a typical day when you are drinking?: 1 or 2 3. How often do you have six or more drinks on one occasion?: Never Total Score: 1 Score Reviewed/Action Taken: No ROJELIO-7 AMB Questionnaire ROJELIO-7 Date ROJELIO - 7 assessed: 12/16/24 Feeling nervous, anxious, or on edge: 0 = Not at all Not being able to stop or control worryin = Not at all Worrying too much about different things: 0 = Not at all Trouble relaxin = Not at all Being so restless that it is hard to sit still: 0 = Not at all Becoming easily annoyed or irritable: 0 = Not at all Feeling afraid as if something awful might happen: 0 = Not at all Total ROJELIO-7 score (0-4 normal; 5-9 mild; 10-14 moderate; 15-21 severe): 0 Source: Developed by Drs. Jose Kimble, Mireya Conrad, Ryan Zarco and colleagues, with an educational ojse from [employer]. ROJELIO-7 Assessment Billing ROJELIO-7 Assessment Tool: ROJELIO-7 Assessment 75040 Review of Systems Const Details: - Endocrine: Denies recent blood glucose readings; Reports prior elevated A1c of 11.6%. - Cardiovascular: Reports elevated blood pressure. - Neurological: Reports significant morning headaches, now resolving. - Musculoskeletal: Denies leg swelling. - Dental: Reports significant pain and swelling related to dental abscess. Physical exam (Primary Care) Vital Signs: Last Vital Signs Temp 98.1 F 12/16/24 16:03 Pulse 80 12/16/24 16:03 Resp 16 12/16/24 16:03 BP 150/92 H 12/16/24 16:03 Pulse Ox 97 12/16/24 16:03 Oxygen Delivery Method Room Air 12/16/24 16:03 Care Plan Goal for BP management: <130/90 BMI result Body Mass Index 41.5 BMI Assessment/Plan discussion: High BMI High, discussed plan: lifestyle, weight reduction, dietary, physical activity and alcohol moderation Tobacco/Smoking Status: Tobacco use Status Tobacco use date assessed 12/16/24 12/16/24 16:14 Patient Tobacco Use Status Never used Tobacco 12/16/24 16:14 PHQ-9: PHQ-9 Score PHQ-9: Total score 0 12/16/24 16:14 Depression Screening Interpretation: Negative Thrive Assessment: Date of Thrive Assessment Date Thrive assessed 12/16/24 12/16/24 16:14 Const Other: Appearance: Alert. Oriented X3. No acute distress. Head: Normal external exam. Normocephalic. Atraumatic. Slight swelling noted on the cheek. Eyes: Pupils are equal, round, and reactive to light. Extraocular movements intact. Conjunctiva and sclera normal. Eyelids normal. Throat: Pharynx normal. Uvula midline. Moist mucous membranes. Neck: Normal inspection. Neck supple. Full range of motion. Cardiovascular: Normal heart rate and rhythm. Respiratory: No respiratory distress. Painless inspiration. Back: Full range of motion noted. Skin: Skin warm and dry. Normal skin color. Normal skin turgor. No rashes/lesions/lacerations noted. Extremities: No lower extremity edema. Extremities exhibit normal range of motion. Neuro: Oriented X 3. No motor deficit. No sensory deficit. Reflexes normal. Results AMB Hemoglobin A1c AMB Hemoglobin A1c 5.4 % Last Edit by JOSE Saravia on 12/16/24 16:37 Results Reviewed Results Reviewed: - Labs: A1c level improved from 11.6% (June) to 5.5% today. Coding Level of Care Code Est Pt Level 3 (59147) Complex EM visit Add On G2211 Diagnoses Diabetes type 2 E11.9 Morbid obesity with BMI of 40.0-44.9, adult E66.01; Z68.41 Essential hypertension I10 Additional Codes PHQ-9 - 56597 - PHQ-9 Billing: Yes ([id number]) ROJELIO-7 Assessment Billing - ROJELIO-7 Assessment Tool: ROJELIO-7 Assessment 93533 ([id number]) Assessment & Plan Assessment & Plan (1) Diabetes type 2: Code(s): E11.9 - Type 2 diabetes mellitus without complications Category: Medical Plan: The patient's A1c has improved significantly from 11.6% to 5.5% with the current regimen of metformin and Jardiance. Continued monitoring of A1c levels and adjustments to the medication regimen will occur if levels rise. The patient expresses reluctance towards finger-prick glucose monitoring; thus, alternative monitoring options or insurance coverage reevaluation would be considered if necessary. Condition is chronic and stable continue to monitor. (2) Morbid obesity with BMI of 40.0-44.9, adult: Code(s): E66.01 - Morbid (severe) obesity due to excess calories; Z68.41 - Body mass index [BMI] 40.0-44.9, adult Category: Medical Plan: Patient to continue improving his diet and exercise regimen. Condition is chronic and stable continue to monitor. (3) Essential hypertension: Code(s): I10 - Essential (primary) hypertension Category: Medical Plan: Adjustment of antihypertensive regimen is necessary due to persistently elevated blood pressure measures. An increase in amlodipine dosage from 2.5 mg to 10 mg was recommended to achieve optimal blood pressure control. The addition of lisinopril/hydrochlorothiazide and hydralazine will continue. Blood pressure will be monitored closely. Condition is chronic and stable continue to monitor. Plan Plan Patient was informed and verbally consented to the use of an ambient scribe for clinic note documentation during this visit. 1. Essential Hypertension Adjustment of antihypertensive regimen is necessary due to persistently elevated blood pressure measures. An increase in amlodipine dosage from 2.5 mg to 10 mg was recommended to achieve optimal blood pressure control. The addition of lisinopril/hydrochlorothiazide and hydralazine will continue. Blood pressure will be monitored closely. 2. Dental Abscess The dental abscess is contributing to elevated blood pressure. The patient is scheduled for a root canal procedure to address this. In the interim, pain management includes naproxen, avoiding other NSAIDs to prevent exacerbation of gastrointestinal risk or renal function impairment. 3. Type 2 Diabetes Mellitus The patient's A1c has improved significantly from 11.6% to 5.5% with the current regimen of metformin and Jardiance. Continued monitoring of A1c levels and adjustments to the medication regimen will occur if levels rise. The patient expresses reluctance towards finger-prick glucose monitoring; thus, alternative monitoring options or insurance coverage reevaluation would be considered if necessary. During this visit, I discussed with the patient the significant improvement in his A1c from 11.6% to 5.5%, attributing this success to adherence to metformin and Jardiance. We discussed options for monitoring blood glucose given his resistance to finger-prick testing, exploring insurance coverage for alternatives. Regarding hypertension, I reviewed the current regimen's inefficacy and recommended increasing amlodipine to 10 mg daily to better control elevated blood pressure. We also addressed dental pain plans, acknowledging its contribution to blood pressure elevation and advocating for the scheduled root canal. Risks, benefits, and follow-up were discussed, with a consensus on continuing current diabetes management and adjusting hypertension therapy. Orders: Orders AMB Hemoglobin A1c Today E11.9 - Type 2 diabetes mellitus without complications Referrals Endocrinology Referral E11.9 - Type 2 diabetes mellitus without complications, E66.01 - Morbid (severe) obesity due to excess calories, Z68.41 - Body mass index [BMI] 40.0-44.9, adult Medications: Changed From amlodipine 2.5 mg PO DAILY 90 tabs 0RF To amlodipine 10 mg PO DAILY 90 tabs 1RF Patient Instructions: - Continue taking metformin and Jardiance as prescribed. - Monitor blood pressure regularly; report significantly elevated or low values. - Take amlodipine at an increased dose as recommended. - Schedule and attend the root canal appointment to address the dental abscess. - Avoid NSAIDs other than naproxen for pain management. - Follow up in three months to reassess A1c and blood pressure control. - Explore alternative methods or insurance options for blood glucose monitoring if necessary.
== END 2024-12-16 16:47 | disposition home or self-care (01) ==
LOC: HO.HMCSH 16:02
PROVIDERS: PCP Internal Medicine; Visit Provider Physician Assistant Medical
DX: E11.9 Type 2 diabetes mellitus without complications (principal); E66.01 Morbid (severe) obesity due to excess calories; Z68.41 Body mass index [BMI] 40.0-44.9, adult; I10 Essential (primary) hypertension

== ENCOUNTER → 2024-12-16 16:02 | Outpatient (BNVA) | payer OTHER, SELFPAY | PROVIDERS: PCP Internal Medicine; Visit Provider Physician Assistant Medical | DX: E11.9 Type 2 diabetes mellitus without complications (principal); I10 Essential (primary) hypertension; E66.01 Morbid (severe) obesity due to excess calories; Z68.41 Body mass index [BMI] 40.0-44.9, adult; K04.7 Periapical abscess without sinus; Z79.84 Long term (current) use of oral hypoglycemic drugs; Z79.899 Other long term (current) drug therapy | CPT/HCPCS: 83036; 96127 ==

== ENCOUNTER 2025-03-18 16:07 | Outpatient (AMB) | payer OTHER, SELFPAY ==
[2025-03-18 16:10] VITALS: BP 142/80; PULSE 88; RESP 16; TEMP 36.8; O2SAT 98; BMI 42.2
--- NOTE | 2025-03-18 16:10 | A.OFFPC_ITS ---
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: No Accompanied by: Self / Same As Patient Allergies No Known Allergies (No Known Allergies*) Allergy (Verified 03/18/25 17:28) Medication List - Last Reconciled 03/18/25 by Arabella Jackson PA-C alcohol swabs (DropSafe Alcohol Prep Pads) 1 pad topical TIDWMEAL amlodipine 10 mg PO DAILY atorvastatin 20 mg PO BEDTIME blood sugar diagnostic (FreeStyle Lite Strips) Assess blood glucose level at breakfast lunch and dinner blood-glucose meter (FreeStyle Lite Meter kit) Assess blood glucose level at breakfast lunch and dinner cholecalciferol (vitamin D3) 50 mcg PO DAILY empagliflozin (Jardiance) 25 mg PO DAILY hydralazine 10 mg PO BID hydroxyzine HCl 50 mg PO BEDTIME lancets (2-In-1 Lancet Device) Assess blood glucose level at breakfast lunch and dinner lancets (FreeStyle Lancets) Please monitor glucose at breakfast lunch and dinner lancing device, vacuum-lancets Please assess glucose 3 times a day at breakfast lunch and dinner lisinopril-hydrochlorothiazide 20-25 mg 1 tab PO DAILY metformin 1,000 mg (2 x 500 mg) PO BID Tobacco use date assessed: 03/18/25 Dental Screening Dental Screen Date: 12/16/24 HPI 3 month follow up HPI Details The patient is a 39-year-old male presenting for a three-month follow- up primarily for diabetes management. He has a history of diabetes mellitus, with a significant improvement in hemoglobin A1c from 11.6% in June 2024 to 5.4% in November, indicating effective management of the condition. He reports a reduction in fast food consumption, contributing to weight loss and improved glycemic control. The patient also has a history of hypertension, currently managed with amlodipine, with home blood pressure readings typically around 120/80 mmHg. In the clinic, his blood pressure was recorded at 142/80 mmHg, which is slightly elevated compared to home readings. The patient reports symptoms consistent with Attention Deficit Hyperactivity Disorder (ADHD), including difficulty with impulse control and sleep disturbances, leading to inadequate sleep duration of approximately 4.5 hours per night. He is not currently on medication for ADHD and experiences difficulty in shutting off his thoughts at night, impacting his sleep quality. 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 - Nutrition: Reports reduced fast food i ntake and healthier meal choices, including grilled chicken wraps with vegetables. - Family Status: Lives with a girlfriend who has a brain injury, requiring him to assist with household tasks. [facility] Medical History Morbid obesity with BMI of 40.0-44.9, adult Colon cancer screening Diabetes type 2 FRANKIE (obstructive sleep apnea) Hypospadias Vitamin D deficiency ADHD Abnormal EKG Obesity FRANKIE (obstructive sleep apnea) Surgical History H/O wisdom tooth extraction Family History Father Arthritis Mother Family history of thyroid problem Social History Household Members: Significant Other Housing: Apartment Do you presently have visiting nurse or other home services: No Alcohol intake: current Alcohol intake frequency: holidays/special occasions only Patient Tobacco Use Status: Never used Tobacco service: No Current occupational status: employed Cognitive needs: No Hearing needs: No Vision needs: Yes (rx glasses) Questionnaire PHQ-9 Over the last 2 weeks, how often have you been bothered by any of the following problems? 1. Little interest or pleasure in doing things: not at all 2. Feeling down, depressed, or hopeless: not at all 3. Trouble falling or staying asleep, or sleeping too much: not at all 4. Feeling tired or having little energy: not at all 5. Poor appetite or overeating: not at all 6. Feeling bad about yourself - or that you are a failure or have let yourself or your family down: not at all 7. Trouble concentrating on things, such as reading the newspaper or watching television: not at all 8. Moving or speaking so slowly that other people could have noticed. Or the opposite - being so fidgety or restless that you have been moving around a lot more than usual: not at all 9. Thoughts that you would be better off or of hurting yourself in some way: not at all Total score: 0 Depression Screening Interpretation: Negative Depression Screening Done: Yes 97872 - PHQ-9 Billing: Yes Source: Developed by Drs. Jose Kimble, Mireya Conrad, Ryan Zarco and colleagues, with an educational jose from [employer]. Thrive Questionnaire Date Thrive assessed: 12/16/24 I am a: Patient What is your living situation today?: I have a steady place to live Within the past 12 months, did the food you bought not last and you didn't have the money to get more?: Never true Within the past 12 months, did you worry whether your food would run out before you got money to buy more?: Never true Do you have trouble paying for medicines?: No Do you have trouble getting transportation to medical appointments?: No Do you have trouble paying your heating and electricity bill?: No Do you have trouble taking care of your child, family member or friend?: No Do you have trouble with day-to-day activities such as bathing, preparing meals, shopping, managing finances, etc.?: No Are you currently unemployed and looking for a job?: No Are you interested in more education?: No Please select the resources that you would like help with: None THRIVE Score: 0 AUDIT C Alcohol Use Questionnaire (AUDIT-C) 1. How often do you have a drink containing alcohol?: Monthly or less 2. How many drinks containing alcohol do you have on a typical day when you are drinking?: 1 or 2 3. How often do you have six or more drinks on one occasion?: Never Total Score: 1 Score Reviewed/Action Taken: No ROJELIO-7 AMB Questionnaire ROJELIO-7 Date ROJELIO - 7 assessed: 12/16/24 Feeling nervous, anxious, or on edge: 0 = Not at all Not being able to stop or control worryin = Not at all Worrying too much about different things: 0 = Not at all Trouble relaxin = Not at all Being so restless that it is hard to sit still: 0 = Not at all Becoming easily annoyed or irritable: 0 = Not at all Feeling afraid as if something awful might happen: 0 = Not at all Total ROJELIO-7 score (0-4 normal; 5-9 mild; 10-14 moderate; 15-21 severe): 0 Source: Developed by Drs. Jose Kimble, Mireya Conrad, Ryan Zarco and colleagues, with an educational jose from [employer]. ROJELIO-7 Assessment Billing ROJELIO-7 Assessment Tool: ROJELIO-7 Assessment 86561 Review of Systems Const Details: - General: Denies significant weight loss, reports stable weight. - Endocrine: Denies polyuria, polydipsia, or rashes. - Neurological: Reports difficulty with impulse control and sleep disturbances. Physical exam (Primary Care) Vital Signs: Last Vital Signs Temp 98.2 F 03/18/25 16:10 Pulse 88 03/18/25 16:10 Resp 16 03/18/25 16:10 BP 142/80 H 03/18/25 16:10 Pulse Ox 98 03/18/25 16:10 Oxygen Delivery Method Room Air 03/18/25 16:10 Care Plan Goal for BP management: <140/90 patient to monitor blood pressure and bring blood pressure diary at next visit BMI result Body Mass Index 42.2 BMI Assessment/Plan discussion: High BMI High, discussed plan: lifestyle, weight reduction, dietary, physical activity and alcohol moderation Tobacco/Smoking Status: Tobacco use Status Tobacco use date assessed 03/18/25 03/18/25 16:15 Patient Tobacco Use Status Never used Tobacco 03/18/25 16:15 PHQ-9: PHQ-9 Score PHQ-9: Total score 0 03/18/25 16:20 Depression Screening Interpretation: Negative Thrive Assessment: Date of Thrive Assessment Date Thrive assessed 12/16/24 03/18/25 16:15 Const Other: Appearance: Alert. Oriented X3. No acute distress. Head: Normal external exam. Normocephalic. Atraumatic. Eyes: Pupils are equal, round, and reactive to light. Extraocular movements intact. Conjunctiva and sclera normal. Eyelids normal. Throat: Pharynx normal. Uvula midline. Moist mucous membranes. Neck: Normal inspection. Neck supple. Full range of motion. Cardiovascular: Normal heart rate and rhythm. Respiratory: No respiratory distress. Painless inspiration. Back: Full range of motion noted. Skin: Skin warm and dry. Normal skin color. Normal skin turgor. Extremities: Extremities exhibit normal range of motion. Neuro: Oriented X 3. Results AMB Hemoglobin A1c AMB Hemoglobin A1c 5.8 % Last Edit by JOSE Saravia on 03/18/25 16:39 Results Reviewed Results Reviewed: - Labs: Hemoglobin A1c improved from 11.6% in June 2024 to 5.4% in November. Today in office hemoglobin A1c 5.8 Coding Level of Care Code Est Pt Level 4 (42572) Complex EM visit Add On G2211 Diagnoses Diabetes type 2 E11.9 Essential hypertension I10 ADHD F90.9 Additional Codes ROJELIO-7 Assessment Billing - ROJELIO-7 Assessment Tool: ROJELIO-7 Assessment 78630 ([id number]) PHQ-9 - 35166 - PHQ-9 Billing: Yes ([id number]) Assessment & Plan Assessment & Plan (1) Diabetes type 2: Code(s): E11.9 - Type 2 diabetes mellitus without complications Category: Medical Plan: The patient's diabetes mellitus is well-controlled with a significant reduction in hemoglobin A1c from 11.6% to 5.4%. The plan is to continue current management and monitor dietary habits, particularly the reduction in fast food intake, which has contributed to weight loss and improved glycemic control. (2) Essential hypertension: Code(s): I10 - Essential (primary) hypertension Category: Medical Plan: The patient's hypertension is managed with amlodipine, with home blood pressure readings typically around 120/80 mmHg. In-clinic blood pressure was slightly elevated at 142/80 mmHg, and a recheck is planned to ensure accurate assessment. (3) ADHD: Code(s): F90.9 - Attention-deficit hyperactivity disorder, unspecified type Category: Medical Plan: The patient reports symptoms of ADHD, including impulse control issues and sleep disturbances. A referral to a psychiatrist is planned for further evaluation and management, with consideration of medications such as Adderall or an SSRI. In the interim, hydroxyzine (Atarax) is prescribed to aid sleep and manage anxiety symptoms. Plan Plan Patient was informed and verbally consented to the use of an ambient scribe for clinic note documentation during this visit. 1. Diabetes Mellitus The patient's diabetes mellitus is well-controlled with a significant reduction in hemoglobin A1c from 11.6% to 5.4%. The plan is to continue current management and monitor dietary habits, particularly the reduction in fast food intake, which has contributed to weight loss and improved glycemic control. 2. Hypertension The patient's hypertension is managed with amlodipine, with home blood pressure readings typically around 120/80 mmHg. In-clinic blood pressure was slightly elevated at 142/80 mmHg, and a recheck is planned to ensure accurate assessment. 3. Attention Deficit Hyperactivity Disorder (Adhd) The patient reports symptoms of ADHD, including impulse control issues and sleep disturbances. A referral to a psychiatrist is planned for further evaluation and management, with consideration of medications such as Adderall or an SSRI. In the interim, hydroxyzine (Atarax) is prescribed to aid sleep and manage anxiety symptoms. During the visit, we discussed the patient's diabetes management, noting the significant improvement in hemoglobin A1c levels. We also reviewed the patient's hypertension management, with a plan to recheck blood pressure readings. For ADHD symptoms, I recommended a psychiatric consultation to determine appropriate medication. In the meantime, hydroxyzine was prescribed to assist with sleep and anxiety. We agreed on a follow-up in one month to reassess the patient's progress and adjust the treatment plan as necessary. Orders: Orders AMB Hemoglobin A1c Today E11.9 - Type 2 diabetes mellitus without complications Referrals Psychiatry Outpatient Consultation Service F90.9 - Attention-deficit hyperactivity disorder, unspecified type Medications: New hydroxyzine HCl 50 mg PO BEDTIME 30 tabs 0RF Patient Instructions: - Continue current diabetes management and monitor dietary habits. - Monitor blood pressure at home and report any significant changes. - Take hydroxyzine as prescribed to aid sleep and manage anxiety. - Attend psychiatric consultation for ADHD evaluation. - Follow up in one month for reassessment.
== END 2025-03-18 16:47 | disposition home or self-care (01) ==
LOC: HO.HMCSH 16:07
PROVIDERS: PCP Internal Medicine; Visit Provider Physician Assistant Medical
DX: E11.9 Type 2 diabetes mellitus without complications (principal); I10 Essential (primary) hypertension; F90.9 Attention-deficit hyperactivity disorder, unspecified type

== ENCOUNTER → 2025-03-18 16:07 | Outpatient (BNVA) | payer OTHER, SELFPAY | PROVIDERS: PCP Internal Medicine; Visit Provider Physician Assistant Medical | DX: E11.9 Type 2 diabetes mellitus without complications (principal); I10 Essential (primary) hypertension; F90.9 Attention-deficit hyperactivity disorder, unspecified type | CPT/HCPCS: 83036; 96127 ==

== ENCOUNTER 2025-03-26 09:10 | Outpatient (AMB) | payer OTHER, SELFPAY ==
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
== END 2025-03-26 10:45 | disposition home or self-care (01) ==
LOC: HO.HOP 09:10
PROVIDERS: PCP Internal Medicine; Visit Provider Clinical Nurse Specialist Psychiatric/Mental Health, Adult
DX: F90.9 Attention-deficit hyperactivity disorder, unspecified type (principal)
CPT/HCPCS: 90792

== ENCOUNTER → 2025-03-26 09:10 | Outpatient (BNVA) | payer OTHER, SELFPAY | PROVIDERS: PCP Internal Medicine; Visit Provider Clinical Nurse Specialist Psychiatric/Mental Health, Adult | DX: F90.9 Attention-deficit hyperactivity disorder, unspecified type (principal) | CPT/HCPCS: 90792 ==

== ENCOUNTER 2025-05-08 15:06 | Outpatient (AMB) | payer OTHER, SELFPAY ==
[2025-05-08 15:09] VITALS: BP 141/73; PULSE 92; RESP 16; TEMP 36.6; O2SAT 98; BMI 43.0
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
== END 2025-05-08 15:39 | disposition home or self-care (01) ==
LOC: HO.HMCSH 15:06
PROVIDERS: PCP Internal Medicine; Visit Provider Physician Assistant Medical
DX: E11.9 Type 2 diabetes mellitus without complications (principal); I10 Essential (primary) hypertension; E66.9 Obesity, unspecified; F90.9 Attention-deficit hyperactivity disorder, unspecified type; F32.A Depression, unspecified; G47.33 Obstructive sleep apnea (adult) (pediatric); Z23 Encounter for immunization

== ENCOUNTER → 2025-05-08 15:06 | Outpatient (BNVA) | payer OTHER, SELFPAY | PROVIDERS: PCP Internal Medicine; Visit Provider Physician Assistant Medical | DX: E11.9 Type 2 diabetes mellitus without complications (principal); Z23 Encounter for immunization; I10 Essential (primary) hypertension; E66.9 Obesity, unspecified; Z68.41 Body mass index [BMI] 40.0-44.9, adult; F90.9 Attention-deficit hyperactivity disorder, unspecified type; F32.A Depression, unspecified; G47.33 Obstructive sleep apnea (adult) (pediatric); Z79.84 Long term (current) use of oral hypoglycemic drugs; Z79.899 Other long term (current) drug therapy; Z13.31 Encounter for screening for depression | CPT/HCPCS: 90471; 90656; 96127 ==

== ENCOUNTER 2025-07-30 15:04 | Outpatient (REF) | payer OTHER, SELFPAY ==
[2025-07-30 19:11] LABS: Microalbum/Creatinine Ratio Ur 11.6 ug/mg cr (<30)
== END 2025-07-30 15:05 | disposition home or self-care (01) ==
LOC: HO.LAB 15:04
PROVIDERS: PCP Physician Assistant Medical; Visit Provider Physician Assistant Medical
DX: Z00.00 Encounter for general adult medical examination without abnormal findings (principal); E11.9 Type 2 diabetes mellitus without complications; I10 Essential (primary) hypertension; E66.9 Obesity, unspecified
CPT/HCPCS: 82043; 82570; 83036; 96127

== ENCOUNTER 2025-07-30 15:04 | Outpatient (AMB) | payer OTHER, SELFPAY ==
[2025-07-30 15:18] VITALS: BP 139/73; PULSE 88; RESP 14; TEMP 36.6; O2SAT 98; BMI 44.0
--- NOTE | 2025-07-30 15:18 | A.OFFPC_ITS ---
Vital Signs 07/30/25 15:18 Height 5 ft 9.25 in Weight 300 lb BMI 44.0 BP 139/73 Blood Pressure Location Lt brachial Position Sitting Respiration 14 Pulse 88 Pulse Source Pulse Oximeter Temp 97.9 F Temp Source Temporal Artery Scan Pulse Oximetry (%) 98 Oxygen Delivery Method Room Air Intake Visit Reasons: f/u A1C check and Meds. Entry Level Lab Technician Required: No Accompanied by: Self / Same As Patient Allergies No Known Allergies (No Known Allergies*) Allergy (Verified 07/30/25 16:07) Medication List - Last Reconciled 07/30/25 by Arabella Jackson PA-C alcohol swabs (DropSafe Alcohol Prep Pads) 1 pad topical TIDWMEAL amlodipine 10 mg PO DAILY atorvastatin 20 mg PO BEDTIME blood sugar diagnostic (FreeStyle Lite Strips) Assess blood glucose level at breakfast lunch and dinner blood-glucose meter (FreeStyle Lite Meter kit) Assess blood glucose level at breakfast lunch and dinner bupropion HCl XL (Wellbutrin XL) 150 mg PO QAM cholecalciferol (vitamin D3) 50 mcg PO DAILY empagliflozin (Jardiance) 25 mg PO DAILY hydralazine 10 mg PO BID hydroxyzine HCl 50 mg PO BEDTIME lancets (2-In-1 Lancet Device) Assess blood glucose level at breakfast lunch and dinner lancets (FreeStyle Lancets) Please monitor glucose at breakfast lunch and dinner lancing device, vacuum-lancets Please assess glucose 3 times a day at breakfast lunch and dinner lisinopril-hydrochlorothiazide 20-25 mg 1 tab PO DAILY metformin 1,000 mg (2 x 500 mg) PO BID pen needle, diabetic To give insulin weekly semaglutide (Ozempic) 0.5 mg (0.736 mL) subcut QWEEK Tobacco use date assessed: 05/08/25 Dental Screening Dental Screen Date: 12/16/24 HPI HPI Comments History of Present Illness Details History of Present Illness The patient is a 40-year-old individual presenting for follow-up for management of type 2 diabetes and hypertension. Regarding type 2 diabetes, the patient's hemoglobin A1c has improved, decreasing from 5.8% to 5.6%. The patient's current medication regimen includes Jardiance 25 mg, metformin 1000 mg, and Ozempic 0.25 mg. The patient recently missed one week of Ozempic due to running out of needles for the pen but has since acquired more. The patient reports having gained weight. For hypertension, the patient is on amlodipine 10 mg, hydralazine 10 mg twice a day, and a lisinopril-hydrochlorothiazide 20/25 mg combination pill. The patient's blood pressure is noted to be doing well on this regimen. Social History - Nutrition: The patient's diet has been challenging due to a government shutdown affecting a partner's SNAP benefits and changes in healthy meal options at a favorite restaurant. - Social Support: The patient has a girl friend. - Weight: The patient reports having gai elissa weight. [facility] Medical History (Updated 07/30/25 @ 16:10 by Arabella Jackson PA-C) Healthcare maintenance Depression Type 2 diabetes mellitus with hemoglobin A1c goal of less than 7.0% Morbid obesity with BMI of 40.0-44.9, adult Colon cancer screening Diabetes type 2 FRANKIE (obstructive sleep apnea) Hypospadias Vitamin D deficiency ADHD Abnormal EKG Obesity FRANKIE (obstructive sleep apnea) Surgical History H/O wisdom tooth extraction Family History Father Arthritis Mother Family history of thyroid problem Social History Household Members: Significant Other Housing: Apartment Do you presently have visiting nurse or other home services: No Alcohol intake: current Alcohol intake frequency: holidays/special occasions only Patient Tobacco Use Status: Never used Tobacco service: No Current occupational status: employed Cognitive needs: No Hearing needs: No Vision needs: Yes (rx glasses) Questionnaire PHQ-9 Over the last 2 weeks, how often have you been bothered by any of the following problems? 1. Little interest or pleasure in doing things: not at all 2. Feeling down, depressed, or hopeless: not at all 3. Trouble falling or staying asleep, or sleeping too much: not at all 4. Feeling tired or having little energy: not at all 5. Poor appetite or overeating: not at all 6. Feeling bad about yourself - or that you are a failure or have let yourself or your family down: not at all 7. Trouble concentrating on things, such as reading the newspaper or watching television: not at all 8. Moving or speaking so slowly that other people could have noticed. Or the opposite - being so fidgety or restless that you have been moving around a lot more than usual: not at all 9. Thoughts that you would be better off or of hurting yourself in some way: not at all Total score: 0 Depression Screening Interpretation: Negative Depression Screening Done: Yes 99878 - PHQ-9 Billing: Yes Source: Developed by Drs. Jose Kimble, Mireya Conrad, Ryan Zarco and colleagues, with an educational jose from [employer]. Thrive Questionnaire Date Thrive assessed: 03/18/25 I am a: Patient What is your living situation today?: I have a steady place to live Within the past 12 months, did the food you bought not last and you didn't have the money to get more?: Never true Within the past 12 months, did you worry whether your food would run out before you got money to buy more?: Never true Do you have trouble paying for medicines?: No Do you have trouble getting transportation to medical appointments?: No Do you have trouble paying your heating and electricity bill?: No Do you have trouble taking care of your child, family member or friend?: No Do you have trouble with day-to-day activities such as bathing, preparing meals, shopping, managing finances, etc.?: No Are you currently unemployed and looking for a job?: No Are you interested in more education?: No Please select the resources that you would like help with: None THRIVE Score: 0 AUDIT C Alcohol Use Questionnaire (AUDIT-C) 1. How often do you have a drink containing alcohol?: Monthly or less 2. How many drinks containing alcohol do you have on a typical day when you are drinking?: 1 or 2 3. How often do you have six or more drinks on one occasion?: Never Total Score: 1 Score Reviewed/Action Taken: No ROJELIO-7 AMB Questionnaire ROJELIO-7 Date ROJELIO - 7 assessed: 03/18/25 Feeling nervous, anxious, or on edge: 0 = Not at all Not being able to stop or control worryin = Not at all Worrying too much about different things: 0 = Not at all Trouble relaxin = Not at all Being so restless that it is hard to sit still: 0 = Not at all Becoming easily annoyed or irritable: 0 = Not at all Feeling afraid as if something awful might happen: 0 = Not at all Total ROJELIO-7 score (0-4 normal; 5-9 mild; 10-14 moderate; 15-21 severe): 0 Source: Developed by Drs. Jose Kimble, Mireya Conrad, Ryan Zarco and colleagues, with an educational jose from [employer]. ROJELIO-7 Assessment Billing ROJELIO-7 Assessment Tool: ROJELIO-7 Assessment 37629 Review of Systems Narrative Review of Systems - General: Reports a subjective feeling of being hot normally. - Endocrine: Reports weight gain. - Gastrointestinal: Denies feeling sick from Ozempic. Const All systems reviewed & are unremarkable except as noted in HPI and below Physical exam (Primary Care) Vital Signs: Last Vital Signs Temp 97.9 F 07/30/25 15:18 Pulse 88 07/30/25 15:18 Resp 14 07/30/25 15:18 BP 139/73 07/30/25 15:18 Pulse Ox 98 07/30/25 15:18 Oxygen Delivery Method Room Air 07/30/25 15:18 Care Plan Goal for BP management: <140/90 at Goal BMI result Body Mass Index 44.0 BMI Assessment/Plan discussion: High BMI High, discussed plan: lifestyle, weight reduction, dietary, physical activity, alcohol moderation and other Tobacco/Smoking Status: Tobacco use Status Tobacco use date assessed 05/08/25 07/30/25 15:19 Patient Tobacco Use Status Never used Tobacco 07/30/25 15:19 PHQ-9: PHQ-9 Score PHQ-9: Total score 0 07/30/25 15:41 Depression Screening Interpretation: Negative Thrive Assessment: Date of Thrive Assessment Date Thrive assessed 03/18/25 07/30/25 15:19 Narrative Physical Exam Appearance: Alert. Oriented X3. No acute distress. Head: Normal external exam. Normocephalic. Atraumatic. Eyes: Pupils are equal, round, and reactive to light. Extraocular movements intact. Conjunctiva and sclera normal. Eyelids normal. Throat: Pharynx normal. Uvula midline. Moist mucous membranes. Neck: Normal inspection. Neck supple. Full range of motion. Cardiovascular: Normal heart rate and rhythm. Respiratory: No respiratory distress. Painless inspiration. Back: Full range of motion noted. Skin: Skin warm and dry. Normal skin color. Normal skin turgor. No rashes/lesions/lacerations noted. Extremities: Extremities exhibit normal range of motion. Neuro: Oriented X 3. No motor deficit. No sensory deficit. Reflexes normal. Results AMB Hemoglobin A1c AMB Hemoglobin A1c 5.6 % Last Edit by JOSE Saravia on 07/30/25 15:42 Results Reviewed Results Reviewed: Laboratory Last Values Hgb A1c (Clinic) 5.6 % (4.0-6.0) 07/30/25 15:26 Results - Labs: Hemoglobin A1c is 5.6%, which is a decrease from the previous value of 5.8%. Coding Level of Care Code Est Pt Level 4 (09022) Complex visit Add On G2211 Diagnoses Type 2 diabetes mellitus with hemoglobin A1c goal of less than 7.0% E11.9 Essential hypertension I10 Obesity E66.9 Morbid obesity with BMI of 40.0-44.9, adult E66.01; Z68.41 Healthcare maintenance Z00.00 Additional Codes ROJELIO-7 Assessment Billing - RJOELIO-7 Assessment Tool: ROJELIO-7 Assessment 51009 ([id number]) PHQ-9 - 16599 - PHQ-9 Billing: Yes ([id number]) Time Spent (min) 60 Assessment & Plan Assessment & Plan (1) Type 2 diabetes mellitus with hemoglobin A1c goal of less than 7.0%: Code(s): E11.9 - Type 2 diabetes mellitus without complications Category: Medical Plan: The patient's A1c has improved to 5.6% from 5.8%. To further improve glycemic control and promote weight loss, the Ozempic dose will be increased from 0.25 mg to 0.5 mg weekly. The plan is to titrate the dose monthly, as tolerated, with the goal of reaching the maximum dose of 2 mg. A urine creatinine ratio test was ordered to screen for diabetic nephropathy, and a sample was collected in- office. The patient will continue Jardiance 25 mg and metformin 1000 mg. (2) Essential hypertension: Code(s): I10 - Essential (primary) hypertension Category: Medical Plan: The patient's blood pressure is well-controlled on the current medication regimen. The patient will continue amlodipine 10 mg, hydralazine 10 mg twice daily, and the lisinopril-hydrochlorothiazide 20/25 mg combination pill. Refills for these medications have been sent to [facility]. (3) Obesity: Comment: HE REMAINS MORBIDLY OBESE, THIS TIME HAS GAINED ABOUT 3 LB SINCE LAST VISIT. DISCUSSED WITH HIM IN DETAIL, HE MUST LIMIT HIS CALORIES INTAKE. AND HE SHOULD EXERCISE DAILY SUCH WALKING AT LEAST FOR HALF AN HOUR. ENCOURAGED TO JOIN A WEIGHT MANAGEMENT PROGRAM. Code(s): E66.9 - Obesity, unspecified Category: Medical Plan: The patient reports weight gain and desires to lose weight. The titration of Ozempic is expected to aid in weight loss. (4) Morbid obesity with BMI of 40.0-44.9, adult: Code(s): E66.01 - Morbid (severe) obesity due to excess calories; Z68.41 - Body mass index [BMI] 40.0-44.9, adult Category: Medical Plan: The patient reports weight gain and desires to lose weight. The titration of Ozempic is expected to aid in weight loss. (5) Healthcare maintenance: Code(s): Z00.00 - Encounter for general adult medical examination without abnormal findings Category: Medical Plan: A discussion was had regarding the need for a physical exam. The patient will schedule the next 3-month follow-up appointment as a physical. Plan Plan Patient was informed and verbally consented to the use of an ambient scribe for clinic note documentation during this visit. 1. Type 2 Diabetes Mellitus The patient's A1c has improved to 5.6% from 5.8%. To further improve glycemic control and promote weight loss, the Ozempic dose will be increased from 0.25 mg to 0.5 mg weekly. The plan is to titrate the dose monthly, as tolerated, with the goal of reaching the maximum dose of 2 mg. A urine creatinine ratio test was ordered to screen for diabetic nephropathy, and a sample was collected in- office. The patient will continue Jardiance 25 mg and metformin 1000 mg. 2. Hypertension The patient's blood pressure is well-controlled on the current medication regimen. The patient will continue amlodipine 10 mg, hydralazine 10 mg twice daily, and the lisinopril-hydrochlorothiazide 20/25 mg combination pill. Refills for these medications have been sent to [facility]. 3. Weight Management The patient reports weight gain and desires to lose weight. The titration of Ozempic is expected to aid in weight loss. 4. Health Maintenance A discussion was had regarding the need for a physical exam. The patient will schedule the next 3-month follow-up appointment as a physical. Discussion Notes I reviewed the patient's recent lab results, highlighting the improvement in the A1c to 5.6%. We discussed the current medication regimen for diabetes, and I recommended increasing the Ozempic dose to 0.5 mg weekly to aid in both glycemic control and weight loss. I explained the plan to gradually increase the dose monthly, up to a maximum of 2 mg, and the patient agreed to send a message each month to confirm readiness for the next dose increase. I also explained the importance of screening for kidney complications in diabetes and ordered a urine microalbumin/creatinine ratio test, which was collected during the visit. We confirmed the patient's blood pressure is well-managed and sent refills for the current antihypertensive medications. We agreed to a follow-up in three months, which will be scheduled as a full physical exam. Orders: Orders AMB Hemoglobin A1c Today E11.9 - Type 2 diabetes mellitus without complications Microalbumin, Random (w Creat) Today E11.9 - Type 2 diabetes mellitus without complications Medications: Changed From semaglutide (Ozempic) 0.25 mg (0.368 mL) subcut QWEEK 3 mL 0RF E11.9 - Type 2 diabetes mellitus without complications, E66.01 - Morbid (severe) obesity due to excess calories, G47.33 - Obstructive sleep apnea (adult) (pediatric), Z68.41 - Body mass index [BMI] 40.0-44.9, adult To semaglutide (Ozempic) 0.5 mg (0.736 mL) subcut QWEEK 3 mL 0RF E11.9 - Type 2 diabetes mellitus without complications, E66.01 - Morbid (severe) obesity due to excess calories, G47.33 - Obstructive sleep apnea (adult) (pediatric), Z68.41 - Body mass index [BMI] 40.0-44.9, adult Refilled lisinopril-hydrochlorothiazide 20-25 mg 1 tab PO DAILY 90 tabs 3RF Patient Instructions: Patient Instructions - Increase your Ozempic dose to 0.5 mg once a week, starting with your next injection. - Please send me a message in one month to let me know you are ready to increase the Ozempic dose again. - Continue taking your other medications as prescribed: Jardiance 25 mg daily, metformin 1000 mg daily, amlodipine 10 mg daily, hydralazine 10 mg twice a day, and lisinopril-hydrochlorothiazide. - I have sent refills for your blood pressure medicines to the [facility] on [address]. - Please schedule a follow-up appointment in 3 months. This appointment should be for a full physical exam.
== END 2025-07-30 16:01 | disposition home or self-care (01) ==
LOC: HO.HMCSH 15:04
PROVIDERS: PCP Physician Assistant Medical; Visit Provider Physician Assistant Medical
DX: E11.9 Type 2 diabetes mellitus without complications (principal); I10 Essential (primary) hypertension; E66.9 Obesity, unspecified; E66.01 Morbid (severe) obesity due to excess calories; Z68.41 Body mass index [BMI] 40.0-44.9, adult; Z00.00 Encounter for general adult medical examination without abnormal findings